=== PATIENT | female | born 1955 | race Caucasian/White ===

== ENCOUNTER 2021-09-20 14:56 | Outpatient (REF) | payer MEDICARE, MEDICAID, SELFPAY ==
--- NOTE | ~2021-09-20 | US_ITS ---
EXAMINATION: US VENOUS ULTRASOUND WITH DOPPLER LOWER EXTREMITY, RIGHT CLINICAL INFORMATION: Swelling and pain. Posterior calf bruise. COMPARISON: None TECHNIQUE: Ultrasound of the deep veins is performed from the hip to the calf with compression sonography and color and pulse Doppler assessment. Spectral analysis with color-flow imaging is performed. FINDINGS: There is normal venous compression and respiratory variation and augmented flow. The visualized common femoral vein, superficial femoral vein, profunda femoral vein, popliteal vein, and posterior tibial veins show no evidence of deep venous thrombosis. The peroneal veins are not well visualized. There is no significant popliteal fossa cyst. US/US venous duplex LE RT IMPRESSION: No DVT demonstrated in the right lower extremity. Peroneal veins in the calf is not well visualized.
== END 2021-09-20 14:57 | disposition home or self-care (01) ==
LOC: HO.US 14:56
PROVIDERS: PCP Internal Medicine; Visit Provider Orthopaedic Surgery
DX: R60.0 Localized edema (principal); M79.604 Pain in right leg
CPT/HCPCS: 93971

== ENCOUNTER 2021-10-26 08:12 | Outpatient (REF) | payer MEDICARE, MEDICAID, SELFPAY ==
--- NOTE | ~2021-10-26 | MM_ITS ---
EXAMINATION: MM SCREENING DIGITAL BREAST TOMOSYNTHESIS, BILATERAL CLINICAL INFORMATION: Screening. Asymptomatic. The lifetime risk of breast cancer based on the Tyrer-Cuzick Model is 15%. COMPARISON: Mammography: 02/24/2017; outside mammography 01/01/2015 ([facility]) TECHNIQUE: Digital breast tomosynthesis is performed in both the craniocaudal and mediolateral oblique views along with computer-aided detection (CAD). Synthesized 2D images are generated from the tomosynthesis. FINDINGS: There are scattered areas of fibroglandular density (ACR BI-RADS breast composition Category b). There are no significant masses, abnormal calcifications, or other abnormalities. Parenchymal pattern is similar to prior studies. No developing density or architectural abnormality. No significant changes. MM/MM tomosynthesis screening BI IMPRESSION: No mammographic evidence of malignancy. ASSESSMENT: BI-RADS 1: Negative RECOMMENDATION: Routine annual mammography screening. This patient's information was entered into a reminder system with a target due date for their next mammogram.
== END 2021-10-26 08:13 | disposition home or self-care (01) ==
LOC: HO.MAMMO 08:12
PROVIDERS: PCP Internal Medicine; Visit Provider Internal Medicine
DX: Z12.31 Encounter for screening mammogram for malignant neoplasm of breast (principal)
CPT/HCPCS: 77063; 77067

== ENCOUNTER 2022-02-03 12:40 | Outpatient (REF) | payer MEDICARE, MEDICAID, SELFPAY ==
[2022-02-03 13:41] LABS: MANUAL DIFF FLAG NO
[2022-02-03 13:44] LABS: Basophils Percent Auto 0.7 % (0-2); Eosinophils Absolute Auto 0.2 X10*3/uL (0.0-0.4); Eosinophils Percent Auto 2.8 % (0-4); Hematocrit 42.2 % (37.0-47.0); Imm Gran Abs Auto 0.03 X10*3/uL (0.00-0.03); Imm Gran Pct Auto 0.5 % (0.0-0.4); Lymphocytes Absolute Auto 1.7 X10*3/uL (1.2-4.9); Lymphocytes Percent Auto 29.5 % (20-40); Mean Corpuscular HGB Conc 33.2 g/dl (31.0-35.0); Mean Corpuscular Hemoglobin 32.2 pg (27.0-33.0); Mean Platelet Volume 9.8 fL (9.4-12.3); Monocytes Absolute Auto 0.5 X10*3/uL (0.1-1.2); Monocytes Percent Auto 8.5 % (2-11); Neutrophils Absolute Auto 3.3 x10*3/uL (2.0-8.3); Platelet Count 252 X10*3/uL (160-400); Red Blood Count 4.35 X10*6/uL (4.20-5.50); Red Cell Distribution Width 12.4 % (11.0-16.0); White Blood Count 5.8 X10*3/uL (4.8-10.8)
[2022-02-03 13:50] LABS: D Dimer High Sensitivity < 150 NG/ML
[2022-02-03 13:57] LABS: Alanine Aminotransferase 20 U/L (0-31); Albumin Level 4.2 g/dL (3.5-5.0); Alkaline Phosphatase 146 U/L (39-117); Anion Gap 17 (12-20); Aspartate Amino Transferase 18 U/L (5-31); Bilirubin Total 0.3 mg/dL (0.0-1.0); Blood Urea Nitrogen 7 mg/dL (9-16); Calcium 9.1 mg/dL (8.4-10.2); Carbon Dioxide 29 mmol/L (22-29); Chloride 101 mmol/L (96-108); Cholesterol 247 mg/dL; Estimated Glomerular Filt Rate > 60; Glucose Random 110 mg/dL (60-115); Potassium 3.8 mmol/L (3.3-5.1); Sodium 143 mmol/L (135-145); Total Protein 7.1 g/dL (6.5-8.0)
[2022-02-03 14:00] LABS: B Type Natriuretic Peptide < 10 pg/mL (<100)
[2022-02-03 14:21] LABS: Free T4 (Free Thyroxine) 1.05 ng/dL (0.71-1.85); Thyroid Stimulating Hormone 1.02 uIU/mL (0.32-4.0)
== END 2022-02-03 12:41 | disposition home or self-care (01) ==
LOC: HO.10HDL 12:40
PROVIDERS: Visit Provider Internal Medicine
DX: J44.9 Chronic obstructive pulmonary disease, unspecified (principal); D64.9 Anemia, unspecified; R51.9 Headache, unspecified; F31.9 Bipolar disorder, unspecified
CPT/HCPCS: 36415; 80053; 82465; 83880; 84439; 84443; 85025; 85379

== ENCOUNTER → 2022-03-10 14:49 | Outpatient (REF) | payer MEDICARE, MEDICAID, SELFPAY ==
--- NOTE | 2022-03-10 15:00 | CA_ITS ---
Transthoracic Echocardiogram Patient (Last, First, Middle): Yany Banks, Gender: Female Date of : 1955 Age: 66 Procedure Date: 03/10/2022 Procedure Type: Transthoracic Echocardiogram Location: OP Height: 162.56 cm Weight: 120.2 kg BSA: 2.20 m2 Heart Rate: 91 bpm Pants Busheler: SB Referring MD: Bakari Wallis MD Tax Agent: Bony Haynes MD Symptoms: R06.09 DYSPNEA R60.9 EDEMA J44.9 COPD Study Quality: Fair w contrast ECG Rhythm: Sinus Conclusions: - 1. Technically limited study despite use of contrast agent 2. Normal LV systolic function with mild LVH with impaired relaxation filling pattern 3. Limited visualization of cardiac valves with normal cardiac valvular Doppler 4. Mildly dilated ascending aorta at 4.1 cm Findings Procedure Information Contrast agent, definity, is being given per protocol without apparent complications. Left Ventricle Normal left ventricular size and systolic function. There is mildly increased left ventricular wall thickness. The visually estimated ejection fraction is between 65-70%. Spectral Doppler is indicative of an impaired relaxation filling pattern. Right Ventricle The right ventricle was not well visualized. Atria The left atrium was not well visualized. Interatrial shunt cannot be excluded. The right atrium was not well visualized. Aortic Valve The aortic valve was not well visualized. There is no aortic valve stenosis. Mitral Valve The mitral valve was not well visualized. There is no mitral valve stenosis. Pulmonic Valve The pulmonic valve was not well visualized. Tricuspid Valve The tricuspid valve was not well visualized. Tricuspid regurgitation envelope is inadequate for calculation of right ventricular systolic pressure. Great Vessels The pulmonary artery was not well visualized. There is mild dilatation of the ascending aorta measuring 4.10 cm. Small plaque is seen in the sino tubular ridge and ascending aorta. Venous The inferior vena cava was not well visualized. Pericardium/Pleural The pericardium was not well visualized. Prior Study Comparison no previous study in the last 5 years for comparison Measurements 2D Linear Measurements IVSd: 1.29 0.6-0.9/0.6-1.0 cm LVIDd: 5.09 3.9-5.3/4.2-5.9 cm LVIDd Index: 2.31 2.4-3.2/2.2-3.1 cm/m2 LVIDs: 3.23 2.0-3.6 cm LVPWd: 1.08 0.7-1.1 cm LV Mass: 294.62 67-162/88-224 g LV Mass Index: 133.92 43-95/49-115 g/m2 LVOT Diam: 2.10 3.0+(-)1.3 cm 2D Systolic Function EF 4C: 76.40 >55% EF 2C: 71.70 >55% Mitral Valve MV Pk E: 0.57 MV PK A: 0.85 MV Decel Time: 192.00 E/A: 0.70 E'Medial: 5.00 E/E' Med: 11.40 PHT: 57.00 MVA PHT: 3.86 Decel [place]: 2.98 Aortic Valve AoV Pk Eugene: 1.51 AoV Mn Eugene: 1.01 AoV VTI: 0.22 AoV Pk Grad: 9.00 Aov Mn Grad: 5.00 BAKARI Cont.VTI: 2.12 LVOT LVOT Pk Eugene: 0.76 LVOT Mn Eugene: 0.51 LVOT VTI: 0.14 LVOT Pk Grad: 2.00 LVOT Mn Grad: 1.00 LVOT Diam: 2.10 LVOT Area: 3.46 Diastolic Function MV Pk E: 0.57 MV Pk A: 0.85 E/A: 0.70 E'Medial: 5.00 E/E' Med: 11.40 Right Ventricle TAPSE (mm): 21.40 TVS' Eugene: 14.00 Tricuspid Valve RA Press: 3.00 Great Vessels Aorta Sinus of Valsalva: 3.40 2.0-3.5 cm Ao Asc: 4.10 2.1-3.4 cm Pulmonary Valve PV Pk Eugene: 0.71 Peak PV Grad: 2.00 Updated in Other Vendor System with Status of Final Bony Haynes MD electronically signed on 03/10/2022 5:05:26 PM with status of Final
[2022-03-10 15:55] LABS: Cholesterol 224 mg/dL; HDL Cholesterol 45 mg/dL; Triglycerides 496 mg/dL
== END ==
LOC: HO.CARD 14:49
PROVIDERS: PCP Internal Medicine; Visit Provider Internal Medicine
DX: R06.09 Other forms of dyspnea (principal); R60.9 Edema, unspecified; J44.9 Chronic obstructive pulmonary disease, unspecified; E78.00 Pure hypercholesterolemia, unspecified
CPT/HCPCS: 36415; 80061; 93306; Q9957

== ENCOUNTER 2024-02-13 10:33 | Outpatient (REF) | payer MEDICARE, SELFPAY ==
--- NOTE | ~2024-02-13 | XR_ITS ---
EXAMINATION: XR ANKLE, RIGHT CLINICAL INFORMATION: Right ankle pain. Surgery. COMPARISON: Right ankle radiographs dated 03/03/2012. TECHNIQUE: AP, lateral, and mortise views of the right ankle. FINDINGS: Lateral distal fibular stabilization plate with multiple fixation screws. The distal screws traverse the distal tibiofibular syndesmosis. No hardware fracture. No perihardware lucency to suggest loosening or infection. No acute osseous fracture. The ankle mortise is maintained. No talar osteochondral lesion. Mild tibiotalar joint space narrowing with small marginal osteophytes. Corticated ossification redemonstrated adjacent to the lateral malleolus consistent with a remote, unfused fracture fragment and unchanged since 2011. Plantar and dorsal calcaneal spurs. Circumferential soft tissue swelling. No radiopaque foreign body. XR/XR ankle RT min 3V IMPRESSION: 1. Lateral distal fibular ORIF without evidence of complication. 2. Mild tibiotalar osteoarthritis. 3. Circumferential soft tissue swelling. Electronically signed by: Brennan Redman MD 02/13/2024 12:42 PM EDT
[2024-02-13 11:14] LABS: MANUAL DIFF FLAG NO
[2024-02-13 11:39] LABS: Basophils Absolute Auto 0.1 X10*3/uL (0.0-0.2); Basophils Percent Auto 0.8 % (0-2); Eosinophils Absolute Auto 0.1 X10*3/uL (0.0-0.4); Eosinophils Percent Auto 1.7 % (0-4); Hematocrit 44.7 % (37.0-47.0); Hemoglobin 14.9 g/dl (12.0-16.0); Imm Gran Abs Auto 0.01 X10*3/uL (0.00-0.03); Imm Gran Pct Auto 0.2 % (0.0-0.4); Lymphocytes Absolute Auto 1.8 X10*3/uL (1.2-4.9); Lymphocytes Percent Auto 29.1 % (20-40); Mean Corpuscular HGB Conc 33.3 g/dl (31.0-35.0); Mean Corpuscular Hemoglobin 32.3 pg (27.0-33.0); Mean Platelet Volume 9.4 fL (9.4-12.3); Monocytes Absolute Auto 0.4 X10*3/uL (0.1-1.2); Monocytes Percent Auto 6.8 % (2-11); Neutrophils Absolute Auto 3.7 x10*3/uL (2.0-8.3); Neutrophils Percent Auto 61.4 % (45-73); Platelet Count 246 X10*3/uL (160-400); Red Blood Count 4.61 X10*6/uL (4.20-5.50); Red Cell Distribution Width 12.1 % (11.0-16.0); White Blood Count 6.1 X10*3/uL (4.8-10.8)
[2024-02-13 12:25] LABS: Alanine Aminotransferase 27 U/L (0-31); Albumin Level 4.2 g/dL (3.5-5.0); Alkaline Phosphatase 119 U/L (39-117); Anion Gap 15 (12-20); Aspartate Amino Transferase 23 U/L (5-31); Bilirubin Total 0.4 mg/dL (0.0-1.0); Blood Urea Nitrogen 8 mg/dL (9-16); Calcium 9.5 mg/dL (8.4-10.2); Carbon Dioxide 27 mmol/L (22-29); Chloride 104 mmol/L (96-108); Cholesterol 220 mg/dL (<200); Estimated Glomerular Filt Rate > 60; Glucose Fasting 95 mg/dL (60-99); HDL Cholesterol 44 mg/dL (>40); LDL Cholesterol Calculated 140 mg/dL (<100); Sodium 142 mmol/L (135-145); Total Protein 7.4 g/dL (6.5-8.0); Triglycerides 180 mg/dL (<150)
[2024-02-13 12:29] LABS: Thyroid Stimulating Hormone 0.86 uIU/mL (0.32-4.0)
== END 2024-02-13 10:34 | disposition home or self-care (01) ==
LOC: HO.XRAY 10:33
PROVIDERS: PCP Internal Medicine; Visit Provider Internal Medicine
DX: E78.00 Pure hypercholesterolemia, unspecified (principal); G43.909 Migraine, unspecified, not intractable, without status migrainosus; M25.571 Pain in right ankle and joints of right foot; F31.9 Bipolar disorder, unspecified; Z86.718 Personal history of other venous thrombosis and embolism
CPT/HCPCS: 36415; 73610; 80053; 80061; 84443; 85025

== ENCOUNTER 2024-02-20 12:48 | Outpatient (REF) | payer MEDICARE, SELFPAY ==
--- NOTE | ~2024-02-20 | US_ITS ---
EXAMINATION: MM DIAGNOSTIC DIGITAL BREAST TOMOSYNTHESIS, BILATERAL US BREAST LIMITED, RIGHT MAMMOGRAPHY: CLINICAL INFORMATION: 68-year-old female complaining of diffuse right breast pain and heaviness. Remote history of right-sided benign biopsy/aspiration many years ago. Patient also due for yearly. COMPARISON: Mammography: 10/26/2021, 02/24/2017, 01/01/2015, 12/25/2013. TECHNIQUE: Digital breast tomosynthesis is performed in both the craniocaudal and mediolateral oblique views along with computer-aided detection (CAD). Synthesized 2D images are generated from the tomosynthesis. FINDINGS: There are scattered areas of fibroglandular density (ACR BI-RADS breast composition Category b). There are no suspicious masses, suspicious grouped calcifications, or areas of architectural distortion in either breast. The parenchymal pattern is stable from prior exams. There is no skin or axillary abnormality. No mammographic abnormality to explain diffuse right pain and heaviness. ULTRASOUND: CLINICAL INFORMATION: As above COMPARISON: None relevant. TECHNIQUE: Targeted sonographic evaluation of the right breast 4 quadrants was performed using a high frequency linear transducer. Selected archived documentation. FINDINGS: RIGHT BREAST: There is a mixture of fatty and fibroglandular tissue. No suspicious mass is seen. There is no pathologic acoustic shadowing. No cystic abnormalities. There are no correlates to explain breast pain. US/US breast RT limited mamm only IMPRESSION: There are no findings suspicious for malignancy in either breast. There are no mammographic or sonographic correlates in the right breast to explain diffuse breast pain. Recommend clinical management of follow-up. Otherwise, recommend patient resume routine annual screening. OVERALL ASSESSMENT: Mammography: BI-RADS 1 - Negative Ultrasound: BI-RADS 1 - Negative RECOMMENDATION: 1 year F/U This patient's information was entered into a reminder system with a target due date for their next mammogram. Electronically signed by: Bon Miles MD 02/20/2024 02:39 PM EDT
== END 2024-02-20 12:49 | disposition home or self-care (01) ==
LOC: HO.MAMMO 12:48
PROVIDERS: PCP Internal Medicine; Visit Provider Internal Medicine
DX: N64.4 Mastodynia (principal)
CPT/HCPCS: 76642; 77062; 77066

== ENCOUNTER → 2024-02-20 13:00 | Outpatient (BNV) | payer MEDICARE, SELFPAY | PROVIDERS: PCP Internal Medicine; Visit Provider Radiology Diagnostic Radiology | DX: N64.4 Mastodynia (principal) | CPT/HCPCS: 76642; 77066; G0279 ==

== ENCOUNTER 2024-11-04 15:21 | Outpatient (AMB) | payer MEDICARE, MEDICAID, SELFPAY ==
--- NOTE | 2024-11-04 14:23 | MHC.PC.OV ---
Vital Signs 11/04/24 15:36 Height 5 ft 4 in Weight 277 lb BMI 47.5 BP 130/80 Blood Pressure Location Lt brachial Position Sitting Pulse 98 Pulse Source Pulse Oximeter Temp 97.1 F Temp Source Axillary Pulse Oximetry (%) 96 Oxygen Delivery Method Room Air Intake Visit Reasons: Routine - see comments Individualized Education Plan Aide Required: No Accompanied by: Self / Same As Patient Allergies No Known Allergies Allergy (Verified 11/04/24 14:23) Tobacco use date assessed: 11/04/24 Fall risk assessment: 2 + Falls in past year Last assessed Fall Risk: 11/04/24 Dental Screening Dental Screen Date: 11/04/24 Did you have a dental visit in the last 12 months?: No Did you have a dental problem in the last 6 months where you did not have access to dental care?: No [facility] Medical History (Updated 11/08/24 @ 14:23 by Quinton Gannon MD) Generalized anxiety disorder Surgical History History of colonoscopy (~07/02/08) Family History (Updated 11/04/24 @ 16:00 by Meghna Nolen MA) Mother No problems noted. Father Miller Obrien attack Heart attack Daughter Mental health disorder Social History Housing: House Patient Tobacco Use Status: Current everyday Tobacco user e-Cigarette/Vaping Use: Currently Using service: No Current occupational status: retired Cognitive needs: Yes (cane) Hearing needs: No Vision needs: Yes (rx glasses) Questionnaire PHQ-9 Over the last 2 weeks, how often have you been bothered by any of the following problems? 1. Little interest or pleasure in doing things: not at all 2. Feeling down, depressed, or hopeless: not at all 3. Trouble falling or staying asleep, or sleeping too much: not at all 4. Feeling tired or having little energy: not at all 5. Poor appetite or overeating: not at all 6. Feeling bad about yourself - or that you are a failure or have let yourself or your family down: not at all 7. Trouble concentrating on things, such as reading the newspaper or watching television: not at all 8. Moving or speaking so slowly that other people could have noticed. Or the opposite - being so fidgety or restless that you have been moving around a lot more than usual: not at all 9. Thoughts that you would be better off or of hurting yourself in some way: not at all Total score: 0 Source: Developed by Drs. Wm Fitch, Kimber Peraza, Itz Walters and colleagues, with an educational leonel from [employer]. Thrive Questionnaire Date Thrive assessed: 11/04/24 I am a: Patient Within the past 12 months, did the food you bought not last and you didn't have the money to get more?: Never true Within the past 12 months, did you worry whether your food would run out before you got money to buy more?: Never true Do you have trouble paying for medicines?: No Do you have trouble getting transportation to medical appointments?: No Do you have trouble paying your heating and electricity bill?: No Do you have trouble taking care of your child, family member or friend?: No Do you have trouble with day-to-day activities such as bathing, preparing meals, shopping, managing finances, etc.?: No Are you currently unemployed and looking for a job?: No Are you interested in more education?: No THRIVE Score: 0 AUDIT C Alcohol Use Questionnaire (AUDIT-C) 1. How often do you have a drink containing alcohol?: Monthly or less 2. How many drinks containing alcohol do you have on a typical day when you are drinking?: 1 or 2 3. How often do you have six or more drinks on one occasion?: Less than monthly Total Score: 2 BRI-7 AMB Questionnaire BRI-7 Date BRI - 7 assessed: 11/04/24 Feeling nervous, anxious, or on edge: 0 = Not at all Not being able to stop or control worryin = Not at all Worrying too much about different things: 0 = Not at all Trouble relaxin = Not at all Being so restless that it is hard to sit still: 0 = Not at all Becoming easily annoyed or irritable: 0 = Not at all Feeling afraid as if something awful might happen: 0 = Not at all Total BRI-7 score (0-4 normal; 5-9 mild; 10-14 moderate; 15-21 severe): 0 Source: Developed by Drs. Wm Fitch, Kimber Peraza, Itz Walters and colleagues, with an educational leonel from [employer]. Physical exam (Primary Care) Vital Signs: Last Vital Signs Temp 97.1 F 11/04/24 15:36 Pulse 98 11/04/24 15:36 BP 130/80 11/04/24 15:36 Pulse Ox 96 11/04/24 15:36 Oxygen Delivery Method Room Air 11/04/24 15:36 BMI result Body Mass Index 47.5 Tobacco/Smoking Status: Tobacco use Status Tobacco use date assessed 11/04/24 11/04/24 14:25 Patient Tobacco Use Status Current everyday Tobacco 11/04/24 16:00 e-Cigarette/Vaping Use Currently Using 11/04/24 16:00 PHQ-9: PHQ-9 Score PHQ-9: Total score 0 11/04/24 16:00 Thrive Assessment: Date of Thrive Assessment Date Thrive assessed 11/04/24 11/04/24 14:25 Coding Level of Care Code New Pt Level 4 (19480) Complex EM visit Add On G2211 Diagnoses Generalized anxiety disorder F41.1 Assessment & Plan Assessment & Plan (1) Generalized anxiety disorder: Code(s): F41.1 - Generalized anxiety disorder Category: Medical Plan: See below Plan History of Present Illness The patient is a 69-year-old female presenting with concerns regarding medication management and evaluation for symptoms indicative of diabetes. She has been managing bipolar disorder with paroxetine and quetiapine fumarate, which have proven effective. Additionally, she takes clonazepam due to a history of seizures after a significant accident, stating a need to remain on this medication to prevent seizures. The patient acknowledges a past diagnosis of DVT, for which she was placed on Eliquis following a femur fracture three years prior. Current concerns include experiencing numbness and tingling in her hands and feet, blurred vision, and noticing blood in her urine and bowel movements. With a family history of type 2 diabetes, she expresses worry that her sympxepers might indicate a transition from her historical hypoglycemia to diabetes, as occurred with her relatives. Social History - The patient smoked cigarettes but the quantity was not specified. - She reported having her son drive her to appointments due to unspecified reasons. - Expressed difficulty in finding mental health providers during the COVID-19 pandemic. - Resides in an undisclosed area but has emphasized needing close access to medical care. - Displays assertive decision-making regarding her personal healthcare preferences. Review of Systems - Neurological: Reports numbness and tingling in extremities. - Ophthalmological: Reports blurred vision. - Genitourinary/Gastrointestinal: Reports presence of blood in urine and bowel movements. - Hematological: History of DVT, no recent clots reported. - Psychiatric/Mental Health: Reports effective management of bipolar disorder with current medications. - Endocrinological: Reports low blood sugar episodes, no diabetes diagnosis. Physical Exam General: Cooperative and healthy appearing Nutritional Appearance: Well nourished Orientation/consciousness: Patient oriented x3 Limitations: No limitations Head: Normal to inspection General: Appearance normal, both eyes and all related structures Neck: Normal visual inspection Chest: Normal palpation of entire chest wall Respiratory: Patient reports smoking. ormal respiratory effort Neurology: Patient oriented x3, reports seizures and numbness/tingling in extremities. Results - Labs: Blood work for glucose levels to assess potential transition to diabetes is planned, requiring a fasting state. Plan 1. Bipolar Disorder - Continue with paroxetine and quetiapine. 2. Seizure Disorder - Maintain on clonazepam; plan to see neurologist. 3. Hypoglycemia - Reinforce dietary management; assess glucose levels. 4. Blurred Vision - Check fasting blood glucose levels. 5. Numbness And Tingling In Extremities - Investigate potential connection with diabetes. 6. Blood In Urine And Bowel Movements - Require lab work for further assessment. 7. History Of Femur Fracture - Review medication necessity. 8. Deep Vein Thrombosis - Consult with banking and finance instructor on Eliquis use. Discussion Notes I discussed with the patient the management options for her ongoing conditions, including the continuation of paroxetine and quetiapine fumarate for her bipolar disorder, as they have proven effective. For her seizure disorder, clonazepam is to be continued until a neurologist can evaluate her current treatment regimen. The patient expressed a strong preference not to change this medication due to past withdrawal seizures. I have advised fasting blood work to investigate her concerns regarding potential type 2 diabetes, particularly due to reported symptoms of numbness, tingling, and blurred vision, and familial history. We also discussed the need for a hematology consultation to assess whether she should continue taking Eliquis, initially prescribed post-femur fracture-related DVT. I reassured the patient that we would explore her options for mental health support and detailed the plan for her lab work to prevent any fasting-induced low blood sugar episodes. Patient Instructions - Continue taking paroxetine and quetiapine as prescribed for bipolar disorder. - Maintain clonazepam doses, and keep track of any seizure-related symptoms. - Schedule and attend blood work for glucose assessment as directed, needing a fast beforehand. - Watch for any changes in your vision or sensation in your extremities. - Seek help if blood in urine or bowel movements increases. - Plan to see a banking and finance instructor regarding continued use of Eliquis. - Set appointments with any referred mental health providers to assist with medication management.
--- OUTSIDE RECORDS SUMMARY | 2024-11-04 15:24 | XMS_ITS | Patient Health Record ---
Author Organization [facility] Address [address] [place] [address] Care Team Providers Care Mattress Renovator Name Role Phone Bakari Wallis MD Primary Care Provider Wm Reyes [phone] Reason For Referral No Information Plan Of Treatment Next Appt Details Provider Name:Wm Jorge Deisy , 11/19/2024 11:10:00 AM, [address], [address], [place], [address], Insurance Providers Payer Name Payer Address Payer Phone Subscriber Number Group Number Insured Name Patient Relationship to Insured Coverage Start Date Coverage End Date [place] OF [place] [address] [place] [id number] YONNY COLEMAN Self - patient is the insured MEDICAID OF [facility] [address] [place] [address] [id number] YONNY COLEMAN Self - patient is the insured Medical (General) History Medical History History ICD Code Colonoscopy 07/02/2008 Alcohol abuse depression Anxiety Surgical History Surgery Date(Month/Year) shoulder surgery
--- OUTSIDE RECORDS SUMMARY | 2024-11-04 15:24 | XMS_ITS | Clinical Summary ---
Author Organization [facility] ity Address [address] [place] [address] Care Team Providers Care Fagot Heater Helper Name Role Phone Unavailable Primary Care Provider Unavailabl e Social History Tobacco Use Types Packs/Day Years Used Date Smoking Tobacco: Never Assessed Comments Unknown Sex and Gender Information Value Date Recorded Sex Assigned at Not on file Legal Sex Female 12:05 AM EST Gender Identity Not on file Sexual Orientation Not on file Plan of Treatment Health Maintenance Due Date Last Done Comments Breast Cancer Screening 1955 DTaP,Tdap,and Td Vaccines (1 - Tdap) 1976 Pneumococcal Vaccine: 50+ Ye ars (1 of 1 - PCV) 2007 Zoster Vaccines (1 of 2) 2007 COVID-19 Vaccine ( - 2023-2 5 season) 2024 Influenza Vaccine (Season Ended) 2025 RSV Immunization Adult Patie nts (1 - 1-dose 75+ series) 2032 HIB Vaccines Aged Out No longer eligi ble based on patient's age to complete this topic HPV Vaccines Aged Out No longer eligi ble based on patient's age to complete this topic Hepatitis A Vaccines Aged Out No long er eligible based on patient's age to complete this topic Hepatitis B Vaccines Aged Out No long er eligible based on patient's age to complete this topic IPV Vaccines Aged Out No longer eligi ble based on patient's age to complete this topic MMR Vaccines Aged Out No longer eligi ble based on patient's age to complete this topic Meningococcal ACWY Vaccine Aged Out N o longer eligible based on patient's age to complete this topic Meningococcal B Vaccine Aged Out No l onger eligible based on patient's age to complete this topic RSV Immunization Patients Un erickson 20 months Aged Out No longer eligible b ased on patient's age to complete this topic Varicella Vaccines Aged Out No longer eligible based on patient's age to complete this topic
[2024-11-04 15:36] VITALS: BP 130/80; PULSE 98; TEMP 36.2; O2SAT 96; BMI 47.5
== END 2024-11-04 16:30 | disposition home or self-care (01) ==
LOC: HO.HMCHD 15:21
PROVIDERS: PCP Internal Medicine; Visit Provider Internal Medicine
DX: F41.1 Generalized anxiety disorder (principal)

== ENCOUNTER → 2024-11-04 15:21 | Outpatient (BNVA) | payer MEDICARE, SELFPAY | PROVIDERS: PCP Internal Medicine; Visit Provider Internal Medicine | DX: F41.1 Generalized anxiety disorder (principal) | CPT/HCPCS: 99202 ==

== ENCOUNTER 2024-12-31 13:02 | Outpatient (AMB) | payer MEDICARE, MEDICAID, SELFPAY ==
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
[2024-12-31 13:08] VITALS: BP 130/90; PULSE 100; RESP 18; TEMP 36.2; O2SAT 97
--- OUTSIDE RECORDS SUMMARY | 2024-12-31 13:44 | XMS_ITS | Patient Health Record ---
Author Organization [facility] Address [address] [place] [phone] Care Team Providers Care Inside Parts Sales Name Role Phone NIKITA, KARTIK Primary Care Provider Wm Prince Unavailable [phone] Allergies No Known Allergies Reason For Referral No Information Medications Medication SIG (Take, Route, Frequency, Duration) Notes Start Date End Date Status MiraLax (colon prep) 17 GM/SCOOP 1 238Gm bottle mixed with Gatorade or Crystal Light orally begin at 5:00 p.m. the day before the procedure for 1 days 11/20/2024 Active Dulcolax (colon prep) 5 MG take at 3:00 p.m and 7:00p.m. Orally two tablets twice a day for one day for 1 days 11/20/2024 Active Butalbital-APAP Acti ve clonazePAM Active Eliquis Active Paxil Active QUEtiapine Fumarate Active Social History Tobacco Use: Social History Observation Description Date Details (start date - stop date) Current Smoker NA - NA Tobacco Control (Standard) Question Answer Notes Tobacco use: Current smoker How often do you smoke cigarettes? Every day How many cigarettes a day do you smoke? 21-30 How soon after you wake up do you smoke your fir st cigarette? 6-30 minutes AUDIT-C (Standard) Question Answer Notes Did you have a drink containing alcohol in the p ast year? No Points 0 Interpretation Negative Section Notes: Smokes 1 PPD, Alcohol abuse but not daily anymore Problems Problem Type SNOMED Code ICD Code Onset Dates Problem Status W/U Status Risk Notes Problem Rectal bleeding (K62.5) Active confirmed Problem Change in bowel habit (13180853) Change in bowel habits (R19.4) Active confirmed Vital Signs Blood pressure diastolic 77 mm Hg 11/19/2024 Height 64 in 11/19/2024 Blood pressure systolic 111 mm Hg 11/19/2024 Weight 272 lbs 11/19/2024 BMI 46.68 kg/m2 11/19/2024 Procedures Procedure Date Ordered Date Performed Result Body Sit e COLONOSCOPY 11/19/2024 N/A Encounters Encounter Location Date Provider Diagnosis [facility] [address] [place] [phone] 11/19/2024 Wm Olivas Change in bowel habits R19.4 and Rectal bleeding K62.5 [facility] [address] [place] [phone] 11/19/2024 Wm Olivas Assessments Encounter Date Diagnosis (ICD Code) Assessment Notes Treatment Notes Treatment Clinical Notes Section Notes 11/19/2024 Rectal bleeding (ICD-10 - K62.5) Given Yany's clinical history of some slight change in bowel habits, some hematochezia which sounds to be most consistent with hemorrhoids, and her last colonoscopy being back in 2008, I did recommend a colonoscopy for complete evaluation to rule out polyps or any other lesions. We did review the rationale for that in regard to colorectal cancer prevention and/or early detection. Full consent has been obtained for this, including risks of bleeding and perforation. The procedure will be done with monitored anesthesia care. She was given the below instructions regarding the Eliquis and to review that with you as well. I would leave the use of Lovenox bridging up to your judgment. I did advise Yany to contact me prior to the colonoscopy if anything worsens in regard to her bowel habits or bleeding. She was comfortable with this plan. Thank you again for allowing me to participate in Yany's care. I shall continue to keep you advised of her progress. 11/19/2024 Change in bowel habits (ICD-10 - R19.4) Given Yany's clinical history of some slight change in bowel habits, some hematochezia which sounds to be most consistent with hemorrhoids, and her last colonoscopy being back in 2008, I did recommend a colonoscopy for complete evaluation to rule out polyps or any other lesions. We did review the rationale for that in regard to colorectal cancer prevention and/or early detection. Full consent has been obtained for this, including risks of bleeding and perforation. The procedure will be done with monitored anesthesia care. She was given the below instructions regarding the Eliquis and to review that with you as well. I would leave the use of Lovenox bridging up to your judgment. I did advise Yany to contact me prior to the colonoscopy if anything worsens in regard to her bowel habits or bleeding. She was comfortable with this plan. Thank you again for allowing me to participate in Yany's care. I shall continue to keep you advised of her progress. Plan Of Treatment Pending Test Test Name Order Date COLONOSCOPY 11/19/2024 Next Appt Details Provider Name:Wm Olivas , 02/21/2025 07:30:00 AM, [address] [place] [address], [id number], Insurance Providers Payer Name Payer Address Payer Phone Subscriber Number Group Number Insured Name Patient Relationship to Insured Coverage Start Date Coverage End Date MEDICARE OF [place] [address] [place] [address] [id number] YANY COLEMAN Self - patient is the insured 4 MEDICAID OF [facility] [address] [place] [address] [id number] YANY COLEMAN Self - patient is the insured Medical (General) History Medical History History ICD Code Colonoscopies in 2003 and 2008 were nega tive except for hemorrhoids Alcohol abuse---heavier in the past but still drinks occasionally Bipolar Migraines Seizures Denies [place],DM,CVA,Lung disease,renal dise ase Blood clot in left leg in 2021 after kne e surgery Reports Hypoglycemia Surgical History Surgery Date(Month/Year) Right tibia fibula Right femur Right shoulder
--- OUTSIDE RECORDS SUMMARY | 2024-12-31 13:44 | XMS_ITS | Clinical Summary ---
Author Organization [facility] ity Address [address] [place] [address] Care Team Providers Care Butcher Assistant Name Role Phone Unavailable Primary Care Provider [...] - 2023-2 5 season) 2024 Influenza Vaccine (#1) 2025 RSV Immunization Adult Patie nts (1 [...]
== END 2024-12-31 13:48 | disposition home or self-care (01) ==
LOC: HO.HMCHD 13:05
PROVIDERS: PCP Internal Medicine; Visit Provider Physician Assistant
DX: F31.9 Bipolar disorder, unspecified (principal); I82.409 Acute embolism and thrombosis of unspecified deep veins of unspecified lower extremity; G40.909 Epilepsy, unspecified, not intractable, without status epilepticus; E66.01 Morbid (severe) obesity due to excess calories; G43.909 Migraine, unspecified, not intractable, without status migrainosus; F41.1 Generalized anxiety disorder; E78.5 Hyperlipidemia, unspecified

== ENCOUNTER → 2024-12-31 13:02 | Outpatient (BNVA) | payer MEDICARE, MEDICAID, SELFPAY | PROVIDERS: PCP Internal Medicine; Visit Provider Physician Assistant | DX: G43.909 Migraine, unspecified, not intractable, without status migrainosus (principal); F31.9 Bipolar disorder, unspecified; F41.1 Generalized anxiety disorder; E78.5 Hyperlipidemia, unspecified; E66.01 Morbid (severe) obesity due to excess calories; G40.909 Epilepsy, unspecified, not intractable, without status epilepticus; F17.210 Nicotine dependence, cigarettes, uncomplicated; Z86.718 Personal history of other venous thrombosis and embolism; Z79.01 Long term (current) use of anticoagulants; Z79.899 Other long term (current) drug therapy; Z13.31 Encounter for screening for depression; Z13.30 Encounter for screening examination for mental health and behavioral disorders, unspecified | CPT/HCPCS: 96127; 99202 ==

== ENCOUNTER 2025-01-15 08:46 | Outpatient (REF) | payer MEDICARE, MEDICAID, SELFPAY ==
[2025-01-15 09:02] LABS: MANUAL DIFF FLAG NO
--- OUTSIDE RECORDS SUMMARY | 2025-01-15 09:09 | XMS_ITS | Clinical Summary ---
Author Organization [facility] it Address [address] [place] [address] Care Team Providers Care Senior Site Manager Name Role Phone Unavailable Primary Care Provider [...] Vaccine ( - 2023-2 5 season) 2024 Depression Screening 06/26/2024 Influenza Vaccine (#1) 2025 RSV Immunization Adult [...]
--- OUTSIDE RECORDS SUMMARY | 2025-01-15 09:09 | XMS_ITS | Patient Health Record ---
Author Organization [facility] Address [address] [place] [address] Care Team Providers Care Manager Speech Name Role Phone JAN SHELTON Primary Care Provider Wm Prince Unavailable [phone] Allergies No Known Allergies Reason For Referral No Information Medications Medication SIG (Take, Route, Frequency, Duration) Notes Start Date End Date Status Butalbital-APAP Acti ve Bisacodyl EC 5 MG TAKE 2 TABLETS BY [facility] TWICE A DAY AT 3 PM AND [...] W/U Status Risk Notes Problem Rectal bleeding (59245117) Rectal bleeding (K62.5) Active confirmed Problem Change in bowel habit (96446608) Change in bowel habits (R19.4) Active confirmed Vital Signs Blood pressure diastolic 77 mm Hg 11/19/2024 Height 64 in 11/19/2024 Blood pressure systolic 111 mm Hg 11/19/2024 Weight 272 lbs 11/19/2024 BMI 46.68 kg/m2 11/19/2024 Procedures Procedure Date Ordered Date Performed Result Body Sit e COLONOSCOPY 11/19/2024 N/A Encounters Encounter Location Date Provider Diagnosis [facility] [address] [place] [phone] 11/19/2024 Wm Olivas Change in bowel habits R19.4 and Rectal bleeding K62.5 [facility] [address] [place] [phone] 11/19/[address] [facility] [address] [place] [phone] 01/03/[address] [facility] [address] [place] [phone] 01/03/2025 Wm Olivas Assessments Encounter Date Diagnosis [...] Provider Name:Wm Olivas , 02/21/2025 07:30:00 AM, [address] [place] [address] , [place], [place], [id number], Insurance Providers Payer Name Payer Address Payer Phone Subscriber Number Group Number Insured Name Patient Relationship to Insured Coverage Start Date Coverage End Date [place] OF [place] [address] JAR[place] PE[place] [address] [id number] JARED YANY Self - patient is the insured 4 MEDICAID OF [facility] [address] [place] [address] [id number] JARED YANY Self - patient is the insured Medical (General) History Medical History History ICD Code Colonoscopies in 2003 and 2008 were nega tive except for hemorrhoids Alcohol abuse---heavier in the past but still drinks occasionally Bipolar Migraines Seizures Denies ID,DM,CVA,Lung disease,renal dise ase Blood clot in left leg in 2021 after kne e surgery Reports Hypoglycemia Surgical History Surgery Date(Month/Year) Right tibia fibula Right femur Right shoulder
[2025-01-15 09:41] LABS: Hematocrit 43.3 % (37.0-47.0); Hemoglobin 14.4 g/dl (12.0-16.0); Imm Gran Abs Auto 0.02 X10*3/uL (0.00-0.03); Imm Gran Pct Auto 0.3 % (0.0-0.4); Lymphocytes Absolute Auto 2.0 X10*3/uL (1.2-4.9); Mean Corpuscular HGB Conc 33.3 g/dl (31.0-35.0); Mean Corpuscular Hemoglobin 31.9 pg (27.0-33.0); Mean Corpuscular Volume 95.8 fL (80.0-98.0); NRBC Abs Auto 0.000 X10*3/uL (0.0-0.012); NRBC Pct Auto 0.0 /100WBC (0.0-0.2); Platelet Count 283 X10*3/uL (160-400); Red Blood Count 4.52 X10*6/uL (4.20-5.50); White Blood Count 6.2 X10*3/uL (4.8-10.8)
[2025-01-15 10:11] LABS: Hemoglobin A1C 124.7087 umol/L; Total Hemoglobin (HGBA1C) 3785.0329 umol/L
[2025-01-15 10:28] LABS: Alanine Aminotransferase 31 U/L (0-31); Albumin Level 4.5 g/dL (3.5-5.0); Alkaline Phosphatase 121 U/L (39-117); Anion Gap 15 (12-20); Aspartate Amino Transferase 32 U/L (5-31); Blood Urea Nitrogen 9 mg/dL (9-16); Calcium 9.1 mg/dL (8.4-10.2); Carbon Dioxide 27 mmol/L (22-29); Chloride 104 mmol/L (96-108); Cholesterol 249 mg/dL (<200); Estimated Glomerular Filt Rate > 60; HDL Cholesterol 51 mg/dL (>40); Potassium 4.1 mmol/L (3.3-5.1); Sodium 142 mmol/L (135-145); Total Protein 7.8 g/dL (6.5-8.0); Triglycerides 144 mg/dL (<150)
== END 2025-01-15 08:47 | disposition home or self-care (01) ==
LOC: HO.LAB 08:46
PROVIDERS: Absent Provider Internal Medicine; PCP Physician Assistant; Visit Provider Physician Assistant
DX: F41.1 Generalized anxiety disorder (principal); I82.409 Acute embolism and thrombosis of unspecified deep veins of unspecified lower extremity; G43.909 Migraine, unspecified, not intractable, without status migrainosus; E78.5 Hyperlipidemia, unspecified; F31.9 Bipolar disorder, unspecified
CPT/HCPCS: 36415; 80048; 80061; 80076; 83036; 84443; 85025

== ENCOUNTER → 2025-02-21 06:17 | Day surgery (SDC) | payer MEDICARE, MEDICAID, SELFPAY ==
--- OUTSIDE RECORDS SUMMARY | 2025-01-07 10:48 | XMS_ITS | Clinical Summary ---
Author Organization [facility] ity Address [address] [place] [address] Care Team Providers Care Dermatologist And Dermatopathologist Name Role Phone Unavailable Primary Care Provider [...]
--- OUTSIDE RECORDS SUMMARY | 2025-01-07 10:48 | XMS_ITS | Patient Health Record ---
Author Organization [facility] Address [address] [place] [phone] Care Team Providers Care Helicopter Utility Aircrewman Name Role Phone JAN SHELTON Primary Care Provider Wm Prince Unavailable [phone] Allergies No Known Allergies Reason For Referral No Information Medications Medication SIG (Take, Route, Frequency, Duration) Notes Start Date End Date Status Butalbital-APAP Acti ve Bisacodyl EC 5 MG TAKE 2 TABLETS BY [facility] TWICE A DAY AT 3 PM AND 7 PM for 1 Active clonazePAM Active Eliquis Active MiraLax (colon prep) 17 GM/SCOOP 1 238Gm bottle mixed with Gatorade or Crystal Light orally begin at 5:00 p.m. the day before the procedure for 1 days Active Paxil Active QUEtiapine Fumarate Active MiraLax (colon prep) 17 GM/SCOOP 1 238Gm bottle mixed with Gatorade or Crystal Light orally begin at 5:00 p.m. the day before the procedure for 1 days 01/03/2025 Active Dulcolax (colon prep) 5 MG take at 3:00 p.m and 7:00p.m. the day before the colonoscopy Orally two tablets twice a day for one day for 1 days 01/03/2025 Active Social History Tobacco Use: Social History [...] W/U Status Risk Notes Problem Rectal bleeding (81240310) Rectal bleeding (K62.5) Active confirmed Problem Change in bowel habits (R19.4) Active confirmed Vital Signs Blood pressure diastolic 77 mm Hg 11/19/2024 Height 64 in 11/19/2024 Blood pressure systolic 111 mm Hg 11/19/2024 Weight 272 lbs 11/19/2024 BMI 46.68 kg/m2 11/19/2024 Procedures Procedure Date Ordered Date Performed Result Body Sit e COLONOSCOPY 11/19/2024 N/A Encounters Encounter Location Date Provider Diagnosis [facility] [address] [place] [phone] 11/19/2024 Wm Olivas Change in bowel habits R19.4 and Rectal bleeding K62.5 [facility] [address] [place] [phone] 11/19/2024 Wm Olivas [facility] [address] [place] [phone] 01/03/2025 Wm Olivas [facility] [address] [place] [phone] 01/03/2025 Wm Olivas Assessments Encounter Date Diagnosis (ICD [...] Provider Name:Wm Olivas , 02/21/2025 07:30:00 AM, [address] [place] [address] , [place], [place], [id number], Insurance Providers Payer Name Payer Address Payer Phone Subscriber Number Group Number Insured Name Patient Relationship to Insured Coverage Start Date Coverage End Date MEDICARE OF [place] [address] [place] [id number] [id number] JARED YANY Self - patient is the insured 4 MEDICAID OF [facility] [address] [place] [phone] [id number] JARED YANY Self - patient is the insured Medical (General) History Medical History History ICD Code Colonoscopies in 2003 and 2008 were nega tive except for hemorrhoids Alcohol abuse---heavier in the past but still drinks occasionally Bipolar Migraines Seizures Denies [place],DM,CVA,Lung disease,renal dise ase Blood clot in left leg in 2021 after kne e surgery Reports Hypoglycemia Surgical History Surgery Date(Month/Year) Right tibia fibula Right femur Right shoulder
[2025-02-19 14:05] VITALS: BMI 46.7
--- NOTE | 2025-02-20 09:07 | HO.ANESPROP2 ---
HPI - Anesthesia Eval Consult details Narrative: 69yo F for Colonoscopy Eliquis for DVT post knee surgery Hx ETOH abuse Seizure ds since childhood - controlled on clonazepam - no current Neurology but stable per 12/2024 PCP note and [facility] Active Problems Active Problems: All Active Problems Breast pain, right (Acute) Chronic pain of right lower extremity (Acute) Chronic right hip pain (Acute) Seizure disorder (Acute) Morbid obesity (Acute) HLD (hyperlipidemia) (Acute) DVT (deep venous thrombosis) (Acute) Bipolar disorder (Acute) Migraine (Acute) Generalized anxiety disorder (Acute) Past Medical History Medical History (Updated 02/19/25 @ 14:07 by Shamika Garibay RN) Alcohol dependence Seizure disorder Morbid obesity HLD (hyperlipidemia) DVT (deep venous thrombosis) Bipolar disorder Migraine Generalized anxiety disorder Family History Family History (Updated 11/04/24 @ 16:00 by Meghna Nolen MA) Mother No problems noted. Father Miller Obrein attack Heart attack Daughter Mental health disorder Surgical History Surgical History (Updated 02/19/25 @ 14:07 by Shamika Garibay RN) History of colonoscopy (~07/02/08) Social History Social History Housing: House Patient Tobacco Use Status: Current everyday Tobacco user e-Cigarette/Vaping Use: Currently Using service: No Current occupational status: retired Cognitive needs: Yes (cane) Hearing needs: No Vision needs: Yes (rx glasses) Meds Allergies Allergy/AdvReac Type Severity Reaction Status Date / Time No Known Allergies Allergy Verified 12/31/24 13:01 Home Medications ?Medication ?Instructions ?Recorded ?Confirmed ?Last Taken ?Type hydrocortisone 2.5 % topical topical 12/31/24 12/31/24 Unknown History ointment Exam Height,Weight and Vital Signs: Height 5 ft 4 in Weight 123.377 kg Pertinent Lab Results Pertinent Lab Results: Laboratory Tests 01/15/25 09:00 WBC 6.2 Hgb 14.4 Hct 43.3 Plt Count 283 Sodium 142 Potassium 4.1 Chloride 104 Carbon Dioxide 27 BUN 9 Creatinine 0.55
--- NOTE | 2025-02-21 06:38 | PC.NURSE ---
pt took her eliquis pt cancelled per dr botello
== END ==
LOC: HO.SSS 06:18
PROVIDERS: PCP Physician Assistant; Visit Provider Internal Medicine
DX: R19.4 Change in bowel habit (principal); Z53.09 Procedure and treatment not carried out because of other contraindication; I82.409 Acute embolism and thrombosis of unspecified deep veins of unspecified lower extremity; Z98.890 Other specified postprocedural states; Z79.01 Long term (current) use of anticoagulants

== ENCOUNTER 2025-03-06 13:27 | Outpatient (REF) | payer MEDICARE, MEDICAID, SELFPAY ==
--- OUTSIDE RECORDS SUMMARY | 2025-02-21 03:30 | XMS_ITS ---
Author Organization [facility] Address [address] [place] [address] Care Team Providers Care Sql Programmer Name Role Phone JAN SHELTON Primary Care Provider Wm Prince Unavailable [phone] REASON FOR VISIT change in bowel habits Encounters Encounter Location Date Provider Diagnosis [facility] Outpatient [address] [place] [id number] 02/21/2025 Wm Olivas Plan Of Treatment Next Appt Details Provider Name:Wm Patel Deisy , 06/04/2025 08:30:00 AM, [address] [place] [address], [id number], Progress Notes * TRACEY COLEMANEDOB:[birth year] (69 yo F)Acc No.[id number]:02/21/2025 COLON WITH MAC Patient: Jorge YONNY WEBB Provider: Analia Olivas MD :1955 A ge:69 Y S ex:Female Date:02/21/2025 Address:[address], [place] Pcp:JAN SHELTON Subjective: * Chief Complaints: * [...] 0 02/21/2025 Generated for Edwardo niño/Puneet/Payton on: 0 03/06/2025 05:24 PM EDT
--- NOTE | ~2025-03-06 | MM_ITS ---
EXAMINATION: MM DIAGNOSTIC DIGITAL BREAST TOMOSYNTHESIS, BILATERAL Right limited ultrasound. CLINICAL INFORMATION: Right breast pain for one year. COMPARISON: Mammography: Comparison is made with relevant prior exams. TECHNIQUE: Digital breast mammography with tomosynthesis is performed in both the craniocaudal and mediolateral oblique views along with computer-aided detection (CAD). FINDINGS: There are scattered areas of fibroglandular density (ACR BI-RADS breast composition Category b). Left: Asymmetry retroareolar region on CC view only seen on one view does not persist on additional cc view or MLO view likely represented overlapping breast tissue. No other suspicious masses calcifications or other abnormal findings. Targeted color Doppler ultrasound scanning in the retroareolar region demonstrates normal fibroglandular breast tissue. Right: [place] marker at site of patient's pain in the axilla and upper outer breast anterior depth without underlying abnormal finding. No suspicious masses calcifications or other abnormal findings. Targeted color Doppler ultrasound scanning in the axilla and upper outer breast demonstrates normal fibroglandular breast tissue. There is no sonographic abnormal finding. Results are provided to the patient at time of visit by the technologist. MM/MM tomosynthesis diagnostic BI IMPRESSION: Left: Negative. Right: No mammographic or sonographic abnormal finding to account for the patient's areas of right breast pain. Recommend clinical evaluation and follow-up. ASSESSMENT: BI-RADS BI-RADS 1 - Negative RECOMMENDATION: 1 year F/U This patient's information was entered into a reminder system with a target due date for their next mammogram. Electronically signed by: Emi Huddleston DO 03/06/2025 02:36 PM EDT
--- OUTSIDE RECORDS SUMMARY | 2025-03-06 17:24 | XMS_ITS | Patient Health Record ---
Author Organization [facility] Address [address] [place] [phone] Care Team Providers Care Lapeler Name Role Phone JAN SHELTON Primary Care Provider Wm Prince Unavailable [phone] Allergies No Known Allergies Reason For Referral No Information Medications Medication SIG (Take, Route, Frequency, Duration) Notes Start Date End Date Status Butalbital-APAP Acti ve clonazePAM Active Bisacodyl EC 5 MG TAKE 2 TABLETS BY [facility] TWICE A DAY AT 3 PM AND 7 PM for 1 Active Eliquis Active MiraLax (colon prep) 17 [...] W/U Status Risk Notes Problem Rectal bleeding (94177142) Rectal bleeding (K62.5) Active confirmed Problem Change in bowel habit (60903727) Change in bowel habits (R19.4) Active confirmed Vital Signs Blood pressure diastolic 77 mm Hg 11/19/2024 Height 64 in 11/19/2024 Blood pressure systolic 111 mm Hg 11/19/2024 Weight 272 lbs 11/19/2024 BMI 46.68 kg/m2 11/19/2024 Procedures Procedure Date Ordered Date Performed Result Body Sit e COLONOSCOPY 11/19/2024 N/A Encounters Encounter Location Date Provider Diagnosis [facility] [address] [place] [phone] 11/19/2024 Wm Olivas Change in bowel habits R19.4 and Rectal bleeding K62.5 [facility] [address] [place] [phone] 11/19/2024 Wm Olivas [facility] [address] [place] [phone] 01/03/2025 Wm Olivas [facility] [address] [place] [phone] 01/03/2025 Wm Olivas [facility] [address] [place] [phone] 02/24/2025 Wm Olivas [facility] [address] [place] [phone] 02/25/2025 Wm Olivas Assessments Encounter Date Diagnosis (ICD [...] COLONOSCOPY 11/19/2024 Next Appt Details Provider Name:Wm Jorge Olivas , 06/04/2025 08:30:00 AM, [address] [facility] , [place], [place], [phone], Insurance Providers Payer Name Payer Address Payer Phone Subscriber Number Group Number Insured Name Patient Relationship to Insured Coverage Start Date Coverage End Date MEDICARE OF [place] [address] [place] [id number] YANY COLEMAN Self - patient is the insured [address] [facility] [address] [place] [address] [id number] YANY COLEMAN Self - patient is the insured Medical (General) History Medical History History ICD Code Colonoscopies in 2003 and 2008 were nega tive except for hemorrhoids Alcohol abuse---heavier in the past but still drinks occasionally Bipolar Migraines Seizures Denies [place],DM,CVA,Lung disease,renal dise ase Blood clot in left leg in 2021 after kne e surgery Reports Hypoglycemia Surgical History Surgery Date(Month/Year) Right tibia fibula Right femur Right shoulder
== END 2025-03-06 13:28 | disposition home or self-care (01) ==
LOC: HO.MAMMO 13:27
PROVIDERS: PCP Physician Assistant; Visit Provider Physician Assistant
DX: N64.4 Mastodynia (principal)
CPT/HCPCS: 76642; 77062; 77066

== ENCOUNTER → 2025-03-06 13:33 | Outpatient (BNV) | payer MEDICARE, MEDICAID, SELFPAY | PROVIDERS: PCP Physician Assistant; Visit Provider Internal Medicine | DX: N64.4 Mastodynia (principal) | CPT/HCPCS: 76642; 77066; G0279 ==

== ENCOUNTER 2025-03-26 13:26 | Outpatient (AMB) | payer MEDICARE, MEDICAID, SELFPAY ==
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
[2025-03-26 13:41] VITALS: BP 130/90; PULSE 85; TEMP 36.4; O2SAT 95; BMI 47.0
--- OUTSIDE RECORDS SUMMARY | 2025-03-26 14:40 | XMS_ITS | Clinical Summary ---
Author Organization [facility] it Address [address] [place] [address] Care Team Providers Care Architectural Modeler Name Role Phone Unavailable Primary Care Provider [...] 2007 Zoster Vaccines (1 of 2) 2007 Depression Screening 06/26/2024 COVID-19 Vaccine (1 - 2023-2 5 season) 2025 Influenza Vaccine (#1) 2025 RSV Immunization Adult [...]
== END 2025-03-26 14:26 | disposition home or self-care (01) ==
LOC: HO.HMCHD 13:27
PROVIDERS: PCP Physician Assistant; Visit Provider Physician Assistant
DX: G43.909 Migraine, unspecified, not intractable, without status migrainosus (principal); F31.9 Bipolar disorder, unspecified; I82.409 Acute embolism and thrombosis of unspecified deep veins of unspecified lower extremity; F41.1 Generalized anxiety disorder; E78.5 Hyperlipidemia, unspecified; E66.01 Morbid (severe) obesity due to excess calories; G40.909 Epilepsy, unspecified, not intractable, without status epilepticus

== ENCOUNTER → 2025-03-26 13:26 | Outpatient (BNVA) | payer MEDICARE, MEDICAID, SELFPAY | PROVIDERS: PCP Physician Assistant; Visit Provider Physician Assistant | DX: G43.909 Migraine, unspecified, not intractable, without status migrainosus (principal); F31.9 Bipolar disorder, unspecified; I82.401 Acute embolism and thrombosis of unspecified deep veins of right lower extremity; F41.1 Generalized anxiety disorder; E78.5 Hyperlipidemia, unspecified; E66.01 Morbid (severe) obesity due to excess calories; Z68.42 Body mass index [BMI] 45.0-49.9, adult; G40.909 Epilepsy, unspecified, not intractable, without status epilepticus; Z79.01 Long term (current) use of anticoagulants; Z79.899 Other long term (current) drug therapy | CPT/HCPCS: 99212 ==

== ENCOUNTER 2025-04-13 11:46 | Emergency (ER) | payer MEDICARE, MEDICAID, SELFPAY ==
--- OUTSIDE RECORDS SUMMARY | 2025-02-21 03:30 | XMS_ITS ---
Author Organization [facility] Address [address] [place] [address] Care Team Providers Care Rn Complex Care Name Role Phone JAN SHELTON Primary Care Provider Wm Prince Unavailable [phone] REASON FOR VISIT change in bowel habits Encounters Encounter Location Date Provider Diagnosis [facility] [address] [place] [id number] 02/21/2025 Wm Olivas Plan Of Treatment Next Appt Details Provider Name:Wm Patel Deisy , 06/04/2025 08:30:00 AM, [address] [place] [address], [phone], Progress Notes * TRACEY COLEMANEDOB:[birth year] (69 yo F)Acc No.[id number]:02/21/2025 COLON WITH MAC Patient: Jorge YONNY WEBB Provider: Analia Olivas MD :1955 A ge:69 Y S ex:Female Date:02/21/2025 Address:[address], [place] Pcp:JAN SHELTON Subjective: * Chief Complaints: * [...] 02/21/2025 Generated for Edwardo niño/Puneet/Payton on: 1 12:23 PM EDT
--- NOTE | ~2025-04-13 | US_ITS ---
CLINICAL HISTORY: thigh swelling, hx dvt Right lower extremity venous duplex ultrasound Comparison: None available Findings: The visualized deep veins are fully compressible with normal flow. No popliteal cyst. Right groin lymph node of normal morphology measuring 1.6 cm in length. Impression: No deep vein thrombosis. This document has been electronically signed by: Andree Hines MD on 04/13/2025 14:26:41
[2025-04-13 11:49] VITALS: BP 162/96; PULSE 98; O2SAT 94
[2025-04-13 11:55] VITALS: BP 193/83; PULSE 99; RESP 20; TEMP 36.8; O2SAT 96; BMI 49.8
[2025-04-13 12:00] VITALS: BP 193/83; PULSE 99; RESP 20; TEMP 36.8; O2SAT 96
--- NOTE | 2025-04-13 12:02 | PC.NURSE ---
69 F presents to ED with RLE pain, concerns for blood clot, cramping x 3 days. Hx Femur Fracture, blood clot 3 years ago in RLE. A+Ox4, calm, cooperative. Pt sts she just took a mairjuana gummy and it is now kicking in. 8/10 pain. Speaking in full and complete sentences. RR even and unlabored. Pt has difficulty walking, uses a walker. Pt denies CP or SOB.
--- NOTE | 2025-04-13 12:04 | ED.EXTPRO ---
HPI - Extremity Problem General Chief complaint: Extremity Problem Stated complaint: RLE PAIN X3D, NO INJURY PER EMS Source: patient and EMS Mode of arrival: EMS Limitations: no limitations History of Present Illness ED Provider: HPI Narrative: 69-year-old woman reports history of DVTs, had cramp in the right lower extremity calf continues to hurt and feels that her thigh is more swollen than her left thigh, has a history of hardware in the extremity from prior injury. she is a heavy smoker, noted to be hypertensive. States was hypotensive when she was visiting her OB past week, her PCP has retired, smoker Related Data Home Medications ?Medication ?Instructions ?Recorded ?Confirmed hydrocortisone 2.5 % topical topical 12/31/24 12/31/24 ointment Previous Rx's ?Medication ?Instructions ?Recorded apixaban 5 mg tablet (Eliquis) 5 mg PO BID #180 tabs 12/31/24 rosuvastatin 10 mg tablet 10 mg PO DAILY #90 tabs 01/28/25 albuterol sulfate 90 mcg/actuation 2 puff inhalation Q4-6H PRN 03/05/25 aerosol inhaler shortness of breath or wheezing #8.5 grams paroxetine HCl 30 mg tablet 30 mg PO DAILY #90 tabs 03/11/25 xoheoztvbw-vjhdwjignxaip-ouaqdexf 1 tab PO BID PRN headache #30 tabs 03/21/25 50 mg-325 mg-40 mg tablet quetiapine 50 mg tablet 50 mg PO BID #180 tabs 03/21/25 clonazepam 1 mg tablet 1 mg PO Q8H PRN anxiety #30 tabs 04/08/25 quetiapine 200 mg tablet 200 mg PO DAILY #90 tabs 04/11/25 amlodipine 5 mg tablet 5 mg PO DAILY #30 tabs 04/13/25 Allergies Allergy/AdvReac Type Severity Reaction Status Date / Time No Known Allergies Allergy Verified 04/13/25 11:59 Review of Systems Constitutional: Constitutional: Reports as per [facility] Past Medical History Medical History (Updated 04/13/25 @ 13:14 by Sher Waters DO) Alcohol dependence Seizure disorder Morbid obesity HLD (hyperlipidemia) DVT (deep venous thrombosis) Bipolar disorder Migraine Generalized anxiety disorder Surgical History (Updated 02/19/25 @ 14:07 by Shamika Garibay RN) History of colonoscopy (~07/02/08) Family History Family History (Updated 11/04/24 @ 16:00 by Meghna Nolen MA) Mother No problems noted. Father Miller Obrien attack Heart attack Daughter Mental health disorder Social History Social History Housing: House Alcohol intake: current Patient Tobacco Use Status: Current everyday Tobacco user Smoked in Last 30 Days: Yes e-Cigarette/Vaping Use: Currently Using Use of substances other than those prescribed or required for medical reasons: Yes Substance Use Type: Marijuana Advance Directives: No Advance Directives Information Provided: Yes Do you have a plan to hurt others: No Plan service: No Current occupational status: retired Cognitive needs: Yes (cane) Hearing needs: No Vision needs: Yes (rx glasses) Physical Exam Exam: Exam: Alert and oriented x4 Moving upper and lower extremities symmetrically, no cranial nerve deficits Examination of bilateral lower extremities without pitting edema, scar from prior surgery on right lower extremity, calves are not swollen, there maybe more edema of the right thigh, no evidence of erythema, fluctuations Vital Signs: Vital Signs: Last Vital Signs Temp 98.2 F 04/13/25 12:00 Pulse 99 04/13/25 12:00 Resp 20 04/13/25 12:00 BP 193/83 H 04/13/25 12:00 Pulse Ox 96 04/13/25 12:00 O2 Del Method Room Air 04/13/25 12:00 BMI result Body Mass Index 49.8 Medical Decision Making Medical Decision Making MDM Narrative: 12:08 PM 04/13/2025 (Dr. Sher Waters): Patient is concerned that she may have had DVT, it appears that she is already taking apixaban, I have low suspicion that she has a DVT, she is noted to be hypotensive, history of COPD, continues to smoke I will discuss this with her we will obtain ultrasound to make sure that she has not no evidence for DVT Differential Diagnosis Differential Diagnoses: The differential diagnosis associated with the presentation includes (Arterial insufficiency, venous insufficiency, cellulitis, abscess, CHF) Radiology Impression Discussion of test interpretation with radiology: I have reviewed the radiologist's reading. Independent Historian Clinical information obtained from an independent historian. History obtained from or confirmed by: EMS Chronic Conditions Patient?s care impacted by: Hypertension and Other (COPD) Discharge Plan Discharge Clinical Impression: Localized swelling of right lower leg Patient Disposition: Home, Self-Care Additional Instructions: Please make sure to take your blood thinners, your blood pressure has been elevated this will need to have follow up with the primary care provider I know you are worried about your health I recommend you quit smoking Follow up with the PCP, I will start her on a low-dose blood pressure medication you can started if your blood pressure remains elevated I would say is your upper number is over 140 Any other issues concerns come back to the ED Prescriptions: New amlodipine 5 mg tablet 5 mg PO DAILY Qty: 30 0RF No Action rosuvastatin 10 mg tablet 10 mg PO DAILY Qty: 90 1RF albuterol sulfate 90 mcg/actuation HFA aerosol inhaler 2 puff inhalation Q4-6H PRN (Reason: shortness of breath or wheezing) Qty: 8.5 1RF paroxetine HCl 30 mg tablet 30 mg PO DAILY Qty: 90 1RF cojlfpwvig-vdcxqnlbkuljh-uwwm 50-325-40 mg tablet 1 tab PO BID PRN (Reason: headache) Qty: 30 1RF quetiapine 50 mg tablet 50 mg PO BID Qty: 180 3RF clonazepam 1 mg tablet 1 mg PO Q8H PRN (Reason: anxiety) Qty: 30 0RF quetiapine 200 mg tablet 200 mg PO DAILY Qty: 90 3RF hydrocortisone 2.5 % ointment topical Eliquis 5 mg tablet 5 mg PO BID Qty: 180 1RF Print Language: Upper Sorbian
--- OUTSIDE RECORDS SUMMARY | 2025-04-13 12:23 | XMS_ITS | Clinical Summary ---
Author Organization [facility] it Address [address] [place] [address] Care Team Providers Care Mechanical Car Checker Name Role Phone Unavailable Primary Care Provider [...]
--- OUTSIDE RECORDS SUMMARY | 2025-04-13 12:23 | XMS_ITS | Patient Health Record ---
Author Organization [employer] [facility] Address [address] [place] [address] Care Team Providers Care Rough Rib Grader Name Role Phone JAN SHELTON Primary Care Provider Wm Prince Unavailable [phone] Allergies No Known Allergies Reason For Referral No Information Medications Medication SIG (Take, Route, Frequency, Duration) Notes Start Date End Date Status Butalbital-APAP Acti ve clonazePAM Active Bisacodyl EC 5 MG TAKE 2 TABLETS [facility] TWICE A DAY AT 3 PM AND 7 PM; Duration: 1 Active Eliquis Active MiraLax (colon prep) 17 GM/SCOOP 1 238Gm bottle mixed with Gatorade or Crystal Light orally begin at 5:00 p.m. the day before the procedure; Duration: 1 days Active Paxil Active QUEtiapine Fumarate Active MiraLax (colon prep) 17 GM/SCOOP 1 238Gm bottle mixed with Gatorade or Crystal Light orally begin at 5:00 p.m. the day before the procedure; Duration: 1 days 01/03/2025 Active Dulcolax (colon prep) 5 MG take at 3:00 p.m and 7:00p.m. the day before the colonoscopy Orally two tablets twice a day for one day; Duration: 1 days 01/03/2025 Active Social History Tobacco [...] W/U Status Risk Notes Problem Rectal bleeding (56986664) Rectal bleeding (K62.5) Active confirmed Problem Change in bowel habit (14341091) Change in bowel habits (R19.4) Active confirmed Vital Signs Blood pressure diastolic 77 mm Hg 11/19/2024 Height 64 in 11/19/2024 Blood pressure systolic 111 mm Hg 11/19/2024 Weight 272 lbs 11/19/2024 BMI 46.68 kg/m2 11/19/2024 Procedures Procedure Date Ordered Date Performed Result Body Sit e COLONOSCOPY 11/19/2024 N/A Encounters Encounter Location Date Provider Diagnosis [facility] [address] [place] [phone] 11/19/2024 Wm Olivas Change in bowel habits R19.4 and Rectal bleeding K62.5 [facility] [address] [place] [phone] 11/19/2024 Wm Olivas [facility] [address] [place] [phone] 01/03/2025 Wm Olivas [facility] [address] [place] [phone] 01/03/2025 Wm Olivas [facility] [address] [place] [phone] 02/24/2025 Wm Olivas [facility] [address] [place] [phone] 02/25/2025 mW Olivas Assessments Encounter Date Diagnosis (ICD Code) [...] Next Appt Details Provider Name:Wm Olivas , 06/04/2025 08:30:00 AM, [address] [place] [address] , [place], [place], [id number], Insurance Providers Payer Name Payer Address Payer Phone Subscriber Number Group Number Insured Name Patient Relationship to Insured Coverage Start Date Coverage End Date MEDICARE OF [facility] [address] [place] [id number] [id number] YANY COLEMAN Self - patient is the insured 4 MEDICAID OF [facility] [address] [place] [phone] [id number] YANY COLEMAN Self - patient is the insured Medical (General) History Medical History History ICD Code Colonoscopies in 2003 and 2008 were nega tive except for hemorrhoids Alcohol abuse---heavier in the past but still drinks occasionally Bipolar Migraines Seizures Denies DC,DM,CVA,Lung disease,renal dise ase Blood clot in left leg in 2021 after kne e surgery Reports Hypoglycemia Surgical History Surgery Date(Month/Year) Right tibia fibula Right femur Right shoulder
[2025-04-13 13:52] VITALS: BP 193/83; PULSE 99; RESP 20; TEMP 36.8; O2SAT 96
== END 2025-04-13 13:54 | disposition home or self-care (01) ==
PROVIDERS: Emergency Provider Emergency Medicine
DX: M79.89 Other specified soft tissue disorders (principal); M79.661 Pain in right lower leg; Z86.718 Personal history of other venous thrombosis and embolism; I10 Essential (primary) hypertension; F17.210 Nicotine dependence, cigarettes, uncomplicated
CPT/HCPCS: 93971; 99284

== ENCOUNTER → 2025-04-13 12:03 | Outpatient (BNV) | payer MEDICARE, MEDICAID, SELFPAY | PROVIDERS: Emergency Provider Emergency Medicine; Visit Provider Radiology Diagnostic Radiology | DX: R22.31 Localized swelling, mass and lump, right upper limb (principal); Z86.718 Personal history of other venous thrombosis and embolism | CPT/HCPCS: 93971 ==

== ENCOUNTER 2025-04-17 11:19 | Outpatient (AMB) | payer MEDICARE, MEDICAID, SELFPAY ==
--- NOTE | 2025-04-17 11:33 | A.OFFVIS_ITS ---
VS Expanded 04/17/25 11:36 Height 5 ft 4 in Weight 273 lb 13.026 oz BMI 47.0 Intake Visit Reasons: Obesity Allergies No Known Allergies Allergy (Verified 04/13/25 11:59) Nutrition Presentation Details: Pt presents for MNT for obesity Pt reports doing well, reports not interested in dietary recommendations today Admits to consuming high fat foods and unhealthy food choices BS Monitoring Most Recent Diabetes Results: Cholesterol, (<200) 249 mg/dL H 01/15/25 HDL Cholesterol, (>40) 51 mg/dL 01/15/25 Triglycerides, (<150) 144 mg/dL 01/15/25 Creatinine, (0.5-1.4) 0.55 mg/dL 01/15/25 BUN, (9-16) 9 mg/dL 01/15/25 Sodium, (135-145) 142 mmol/L 01/15/25 Potassium, (3.3-5.1) 4.1 mmol/L 01/15/25 Chloride, (96-108) 104 mmol/L 01/15/25 Carbon Dioxide, (22-29) 27 mmol/L 01/15/25 Calcium, (8.4-10.2) 9.1 mg/dL 01/15/25 AST, (5-31) 32 U/L H 01/15/25 ALT, (0-31) 31 U/L 01/15/25 Total Protein, (6.5-8.0) 7.8 g/dL 01/15/25 Albumin, (3.5-5.0) 4.5 g/dL 01/15/25 JHV-Foypiwj-Dz.Jeor Equation Height: 5 ft 4 in Weight: 274 lb Resting Metabolic Rate: 1766.96 Calculated Activity Level: Sedentary Calories Needed to Maintain Weight: 2120.35 Diagnosis Nutrition problem #1: altered nutrition labs As related to (etiology) #1: diagnosis As evidenced by (sign/symptom) #1: abnormal serum lipids [facility] Medical History (Updated 04/14/25 @ 00:00 by Verona Olmstead) Alcohol dependence Seizure disorder Morbid obesity HLD (hyperlipidemia) DVT (deep venous thrombosis) Bipolar disorder Migraine Generalized anxiety disorder Surgical History (Updated 02/19/25 @ 14:07 by Shamika Garibay RN) History of colonoscopy (~07/02/08) Family History (Updated 11/04/24 @ 16:00 by Meghna Nolen MA) Mother No problems noted. Father Angela Obrien attack Heart attack Daughter Mental health disorder Social History Housing: House Alcohol intake: current Patient Tobacco Use Status: Current everyday Tobacco user e-Cigarette/Vaping Use: Currently Using Substance Use Type: Marijuana service: No Current occupational status: retired Cognitive needs: Yes (cane) Hearing needs: No Vision needs: Yes (rx glasses) Assessment & Plan Assessment & Plan (1) Morbid obesity: Code(s): E66.01 - Morbid (severe) obesity due to excess calories Category: Medical Plan: current wt: 124 kg ( 04/19 ) est kcal needs as per MSJ: 2100 est protein needs as per 1 g/kg BW: 120 est fluid needs as per 30 ml/kg BW: 3700 Recommended fiber > 12 g /day and gradually increase up to 25-28 g /day or as tolerated REc sodium intake <2300 Nutrition topics discussed : Reviewed (R), Pt verbalized understanding (V) , not applicable (N/A) R, V, : Healthy Plate Method Concept: R, V, N/A: Carbohydrates: food sources of carbohydrates, relationship of carbohydrates to blood glucose, fatty liver GI health. Recommended total amount of carbohydrates per meals and snack. Differences between simple carbohydrates and complex carbohydrates R, V, N/A: Lean protein foods including vegan , vegetarian sources of protein. Benefits of protein (including but not limited to healing, nutritional value , benefits in weight loss, glucose control R, basic: Fats : Source of fats, benefits of fats. Difference between saturated and unsaturated fats. Saturated fats and its contribution to inflammation R, V, N/A: Fiber: food sources and role of fiber in the diet (including but not limited to its role as a prebiotic, benefits in constipation, role in IBS , role in glucose control and cholesterol level) R, V, N/A: Hydration: role of hydration and prevention of dehydration or over hydration. Foods and water content. R, V, N/A: Vitamins and Minerals in foods and supplements R, V, N/A: Interpreting food labels, including serving size, macronutrients, vitamins, minerals, allergens, ingredient list , % daily value Patient Instructions: Choose fruits in place of pastries - aim at 3 fruits a day Coding Level of Care Code Nutr Indiv Intake (88184) Diagnoses Morbid obesity E66.01 Time Spent (min) 30
[2025-04-17 11:36] VITALS: BMI 47.0
--- OUTSIDE RECORDS SUMMARY | 2025-04-17 14:26 | XMS_ITS | Clinical Summary ---
Author Organization [facility] it Address [address] [place] [address] Care Team Providers Care Electrical Troubleshooter Name Role Phone Unavailable Primary Care Provider [...]
[2025-04-22 22:13] VITALS: BMI 47.0
== END 2025-04-17 12:54 | disposition home or self-care (01) ==
LOC: HO.ENCR 11:20
PROVIDERS: PCP Physician Assistant; Visit Provider Dietitian, Registered
DX: E66.01 Morbid (severe) obesity due to excess calories (principal)

== ENCOUNTER → 2025-04-17 11:19 | Outpatient (BNVA) | payer MEDICARE, MEDICAID, SELFPAY | PROVIDERS: PCP Physician Assistant; Visit Provider Dietitian, Registered | DX: E66.01 Morbid (severe) obesity due to excess calories (principal); Z71.3 Dietary counseling and surveillance | CPT/HCPCS: 97802 ==

== ENCOUNTER 2025-04-28 18:58 | Emergency (ER) | payer MEDICARE, MEDICAID, SELFPAY ==
--- OUTSIDE RECORDS SUMMARY | 2025-02-21 02:30 | XMS_ITS ---
Author Organization [facility] Address [address] [place] [address] Care Team Providers Care Clothes Wringer Name Role Phone JAN SHELTON Primary Care Provider Wm Prince Unavailable [phone] REASON FOR VISIT change in bowel habits Encounters Encounter Location Date Provider Diagnosis [facility] Out[facility] [address] [place] [id number] 02/21/2025 Wm Olivas Plan Of Treatment Next Appt Details Provider Name:Wm Patel Deisy , 06/04/2025 08:30:00 AM, [address] [place] [address], [phone], Progress Notes * TRACEY COLEMANEDOB:[birth year] (69 yo F)Acc No.[id number]:02/21/2025 COLON WITH MAC Patient: Jorge YONNY WEBB Provider: Analia Olivas MD :1955 A ge:69 Y S ex:Female Date:02/21/2025 Address:[address], [place] Pcp:JAN SHELTON Subjective: * Chief Complaints: * [...] 02/21/2025 Generated for Edwardo niño/Puneet/Payton on: 1 06/28/2024 08:52 PM EST
[2025-04-28 19:16] VITALS: BP 117/77; BP 132/70; PULSE 102; PULSE 104; RESP 18; TEMP 36.4; O2SAT 94; O2SAT 95; BMI 45.4
--- NOTE | 2025-04-28 20:15 | MHC.EDTECH ---
pt states she is unsure if she would like to stay thus the delay in EKG
--- NOTE | 2025-04-28 20:47 | PC.NURSE ---
RN made aware patien was at doors to leave ED. provider Fredy MCCALLUM made aware and went to assess patient. patient son is patients ride home. per provider can make the chjoice to leave ED. patient ambulated with steady gait to exit.
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
--- OUTSIDE RECORDS SUMMARY | 2025-04-28 20:52 | XMS_ITS | Patient Health Record ---
Author Organization [facility] Address [address] [place] [address] Care Team Providers Care A/C Technician Name Role Phone JAN SHELTON Primary Care Provider Wm Prince Unavailable [phone] Allergies No Known Allergies Reason For Referral No Information Medications Medication SIG (Take, Route, Frequency, Duration) Notes Start Date End Date Status Butalbital-APAP Acti ve clonazePAM Active Bisacodyl EC 5 MG TAKE 2 TABLETS BY [facility] TWICE A DAY AT 3 PM AND [...] W/U Status Risk Notes Problem Rectal bleeding (85527024) Rectal bleeding (K62.5) Active confirmed Problem Change in bowel habit (81986761) Change in bowel habits (R19.4) Active confirmed Vital Signs Blood pressure diastolic 77 mm Hg 11/19/2024 Height 64 in 11/19/2024 Blood pressure systolic 111 mm Hg 11/19/2024 Weight 272 lbs 11/19/2024 BMI 46.68 kg/m2 11/19/2024 Procedures Procedure Date Ordered Date Performed Result Body Sit e COLONOSCOPY 11/19/2024 N/A Encounters Encounter Location Date Provider Diagnosis [facility] [address] [place] [phone] 11/19/2024 Wm Olivas Change in bowel habits R19.4 and Rectal bleeding K62.5 [facility] [address] [place] [phone] 11/19/2024 Wm Olivas [facility] [address] [place] [phone] 01/03/2025 Wm Olivas [facility] [address] [place] [phone] 01/03/2025 Wm Olivas [facility] [address] [place] [phone] 02/24/2025 Wm Olivas [facility] [address] [place] [phone] 02/25/2025 Wm Olivas Assessments Encounter Date Diagnosis [...] again for allowing me to participate in Ynay's care. I shall continue to keep you [...] Provider Name:Wm Olivas , 06/04/2025 08:30:00 AM, [address] [place] [address] , [place], [place], [id number], Insurance Providers Payer Name Payer Address Payer Phone Subscriber Number Group Number Insured Name Patient Relationship to Insured Coverage Start Date Coverage End Date MEDICARE OF [facility] [address] [place] [id number] YANY COLEMAN Self - patient is the insured 4 MEDICAID OF [facility] [address] [place] [id number] YANY COLEMAN Self - patient is the insured Medical (General) History Medical History History ICD Code Colonoscopies in 2003 and 2008 were nega tive except for hemorrhoids Alcohol abuse---heavier in the past but still drinks occasionally Bipolar Migraines Seizures Denies [place],DM,CVA,Lung disease,renal dise ase Blood clot in left leg in 2021 after kne e surgery Reports Hypoglycemia Surgical History Surgery Date(Month/Year) Right tibia fibula Right femur Right shoulder
--- OUTSIDE RECORDS SUMMARY | 2025-04-28 20:52 | XMS_ITS | Clinical Summary ---
Author Organization [facility] it Address [address] [place] [address] Care Team Providers Care Automatic Seamer Name Role Phone Unavailable Primary Care Provider [...]
== END 2025-04-28 20:50 | disposition left against medical advice (07) ==
PROVIDERS: Emergency Provider Emergency Medicine
DX: R20.2 Paresthesia of skin (principal); Z72.0 Tobacco use; F10.90 Alcohol use, unspecified, uncomplicated; Z79.899 Other long term (current) drug therapy; Z53.21 Procedure and treatment not carried out due to patient leaving prior to being seen by health care provider
CPT/HCPCS: 99282; 99284

== ENCOUNTER 2025-05-07 09:16 | Outpatient (AMB) | payer MEDICARE, MEDICAID, SELFPAY ==
--- OUTSIDE RECORDS SUMMARY | 2025-02-21 02:30 | XMS_ITS ---
Author Organization [facility] Address [address] [place] [address] Care Team Providers Care Horse Doctor Name Role Phone JAN SHELTON Primary Care Provider Wm Prinec Unavailable [phone] REASON FOR VISIT change in bowel habits Encounters Encounter Location Date Provider Diagnosis [facility] [address] [place] [id number] 02/21/2025 Wm Olivas Plan Of Treatment Next Appt Details Provider Name:Wm Patel Olivas , 06/04/2025 08:30:00 AM, [address] [place] [address], [phone], Progress Notes * TRACEY COLEMANEDOB:[birth year] (69 yo F)Acc No.[id number]:02/21/2025 COLON WITH MAC Patient: Jorge YONNY WEBB Provider: Analia Olivas MD :1955 A ge:69 Y S ex:Female Date:02/21/2025 Address:[address], [id number] Pcp:JAN SHELTON Subjective: * Chief Complaints: * 1 . Change in bowel habits. * Medical History: Objective: * Vitals: Assessment: Plan: * Treatment: * * The named appointment provid er may or may not be the originator of this progress note, and it is not deemed complete until electronically signed by the appointment provider. Sign off status: Pending * Provider: Analia Olivas MD Date: 0 02/21/2025 Generated for Edwardo niño/Puneet/Payton on: 1 07/07/2024 10:12 AM EST
[2025-05-07 09:24] VITALS: BP 144/90; PULSE 79; O2SAT 95; BMI 43.9
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
--- OUTSIDE RECORDS SUMMARY | 2025-05-07 10:12 | XMS_ITS | Clinical Summary ---
Author Organization [facility] it Address [address] [place] [address] Care Team Providers Care Toggler Name Role Phone Unavailable Primary Care Provider [...] Depression Screening 06/26/2024 COVID-19 Vaccine (1 - 2024-2 6 season) 2025 Influenza Vaccine (#1) 2025 RSV [...]
--- OUTSIDE RECORDS SUMMARY | 2025-05-07 10:12 | XMS_ITS | Patient Health Record ---
Author Organization [facility] Address [address] [place] [address] Care Team Providers Care Home Supervisor Name Role Phone JAN SHELTON Primary Care Provider Wm Pirnce Unavailable [phone] Allergies No Known Allergies Reason For Referral No Information Medications Medication SIG (Take, Route, Frequency, Duration) Notes Start Date End Date Status Butalbital-APAP Acti ve clonazePAM Active Bisacodyl EC 5 MG TAKE 2 TABLETS BY [facility] TWICE A DAY AT 3 PM [...] W/U Status Risk Notes Problem Rectal bleeding (65236953) Rectal bleeding (K62.5) Active confirmed Problem Change in bowel habit (33242263) Change in bowel habits (R19.4) Active confirmed Vital Signs Blood pressure diastolic 77 mm Hg 11/19/2024 Height 64 in 11/19/2024 Blood pressure systolic 111 mm Hg 11/19/2024 Weight 272 lbs 11/19/2024 BMI 46.68 kg/m2 11/19/2024 Procedures Procedure Date Ordered Date Performed Result Body Sit e COLONOSCOPY 11/19/2024 N/A Encounters Encounter Location Date Provider Diagnosis [facility] [place] [facility] [address] [place] [phone] 11/19/2024 Wm Olivas Change in bowel habits R19.4 and Rectal bleeding K62.5 [facility] [place] [facility] [address] [place] [phone] 11/19/2024 Wm Olivas [facility] [address] [place] [phone] 01/03/2025 Wm Olivas [facility] [address] [place] [phone] 01/03/2025 Wm Olivas [facility] [address] [place] [phone] 02/24/2025 Wm Olivas [facility] [address] [place] [phone] 02/25/2025 Wm Olivas Assessments Encounter Date Diagnosis [...] Provider Name:Wm Olivas , 06/04/2025 08:30:00 AM, [address] [place] [address] , [place], [place], [phone], Insurance Providers Payer Name Payer Address Payer Phone Subscriber Number Group Number Insured Name Patient Relationship to Insured Coverage Start Date Coverage End Date MEDICARE OF [facility] [address] [place] [id number] YANY COLEMAN Self - patient is the insured 4 MEDICAID OF [facility] [address] [place] [id number] YANY COLEMAN Self - patient is the insured Medical (General) History Medical History History ICD Code Colonoscopies in 2003 and 2008 were nega tive except for hemorrhoids Alcohol abuse---heavier in the past but still drinks occasionally Bipolar Migraines Seizures Denies [place],DM,CVA,Lung disease,renal dise ase Blood clot in left leg in 2021 after kne e surgery Reports Hypoglycemia Surgical History Surgery Date(Month/Year) Right tibia fibula Right femur Right shoulder
== END 2025-05-07 10:14 | disposition home or self-care (01) ==
LOC: HO.HSMS 09:17
PROVIDERS: PCP Internal Medicine; Visit Provider Psychiatry & Neurology Neurology
DX: G40.909 Epilepsy, unspecified, not intractable, without status epilepticus (principal); G43.909 Migraine, unspecified, not intractable, without status migrainosus; G47.9 Sleep disorder, unspecified; R06.83 Snoring
CPT/HCPCS: 99204; G2211

== ENCOUNTER → 2025-05-07 09:16 | Outpatient (BNVA) | payer MEDICARE, MEDICAID, SELFPAY | PROVIDERS: PCP Internal Medicine; Visit Provider Psychiatry & Neurology Neurology | DX: G40.909 Epilepsy, unspecified, not intractable, without status epilepticus (principal); G43.909 Migraine, unspecified, not intractable, without status migrainosus; G47.9 Sleep disorder, unspecified; R06.83 Snoring; E66.01 Morbid (severe) obesity due to excess calories; Z68.41 Body mass index [BMI] 40.0-44.9, adult; Z79.01 Long term (current) use of anticoagulants; Z72.0 Tobacco use; F10.10 Alcohol abuse, uncomplicated | CPT/HCPCS: 99202 ==

== ENCOUNTER 2025-05-14 10:34 | Outpatient (REF) | payer MEDICARE, MEDICAID, SELFPAY ==
--- NOTE | ~2025-05-14 | XR_ITS ---
EXAMINATION: XR FEMUR, RIGHT CLINICAL INFORMATION: M79.606 - Pain in leg, unspecified COMPARISON: None available. TECHNIQUE: AP and lateral views of the right femur were obtained. FINDINGS: There is a metallic hardware plate through the lateral aspect of the entire diaphysis from the intertrochanteric region to the distal epiphysis with an old traumatic deformity in the distal diaphysis and metaphysis. No gross loosening. No acute cortical disruption. Osteopenia versus osteoporosis. Periosteal bone reaction in the medial aspect of the distal diaphysis. Joint space narrowing involving medial lateral compartment of the knee. No subcutaneous emphysema. XR/XR femur RT 2V IMPRESSION: No acute fracture or loosening. Status post open reduction internal fixation, right femur. Nonspecific periosteal bone reaction medial aspect distal diaphysis right femur. Consider a dedicated assessment of the right knee x-ray. Electronically signed by: Julio Cesar Irizarry MD 05/14/2025 12:17 PM MAULIK
[2025-05-14 12:26] LABS: Hematocrit 47.2 % (37.0-47.0); Hemoglobin 15.4 g/dl (12.0-16.0); Mean Corpuscular HGB Conc 32.6 g/dl (31.0-35.0); Mean Corpuscular Hemoglobin 31.3 pg (27.0-33.0); Mean Corpuscular Volume 95.9 fL (80.0-98.0); NRBC Abs Auto 0.000 X10*3/uL (0.0-0.012); NRBC Pct Auto 0.0 /100WBC (0.0-0.2); Platelet Count 285 X10*3/uL (160-400); Red Blood Count 4.92 X10*6/uL (4.20-5.50); White Blood Count 8.7 X10*3/uL (4.8-10.8)
[2025-05-14 13:46] LABS: Alanine Aminotransferase 27 U/L (0-31); Albumin Level 4.8 g/dL (3.5-5.0); Alkaline Phosphatase 135 U/L (39-117); Anion Gap 16 (12-20); Aspartate Amino Transferase 24 U/L (5-31); Blood Urea Nitrogen 12 mg/dL (9-16); Calcium 9.5 mg/dL (8.4-10.2); Carbon Dioxide 25 mmol/L (22-29); Chloride 103 mmol/L (96-108); Estimated Glomerular Filt Rate > 60; Potassium 3.9 mmol/L (3.3-5.1); Sodium 140 mmol/L (135-145); Total Protein 8.1 g/dL (6.5-8.0)
== END 2025-05-14 10:35 | disposition home or self-care (01) ==
LOC: HO.XRAY 10:34
PROVIDERS: PCP Physician Assistant Medical; Visit Provider Physician Assistant Medical
DX: F41.1 Generalized anxiety disorder (principal); I10 Essential (primary) hypertension; F31.9 Bipolar disorder, unspecified; E66.01 Morbid (severe) obesity due to excess calories; M79.604 Pain in right leg; G43.909 Migraine, unspecified, not intractable, without status migrainosus; G40.909 Epilepsy, unspecified, not intractable, without status epilepticus; Z87.81 Personal history of (healed) traumatic fracture; Z79.01 Long term (current) use of anticoagulants
CPT/HCPCS: 36415; 73552; 80053; 84443; 85027; 96127

== ENCOUNTER → 2025-05-14 11:48 | Outpatient (BNV) | payer MEDICARE, MEDICAID, SELFPAY | PROVIDERS: PCP Physician Assistant Medical; Visit Provider Radiology Diagnostic Radiology | DX: M79.601 Pain in right arm (principal) | CPT/HCPCS: 73552 ==

== ENCOUNTER 2025-06-04 07:06 | Day surgery (SDC) | payer MEDICARE, MEDICAID, SELFPAY ==
--- OUTSIDE RECORDS SUMMARY | 2025-02-21 02:30 | XMS_ITS ---
Author Organization [facility] Address [address] [place] [address] Care Team Providers Care Belt Operator Name Role Phone JAN SHELTON Primary Care Provider Wm Prince Unavailable [phone] REASON FOR VISIT change in bowel habits Encounters Encounter Location Date Provider Diagnosis [facility] Outpatient [address] [place] [id number] 02/21/2025 Wm Olivas Plan Of Treatment Next Appt Details Provider Name:Wm Jorge Olivas , 06/04/2025 08:30:00 AM, [address] [place] [address], [id number], Progress Notes * TRACEY COLEMANEDOB:[birth year] (69 yo F)Acc No.[id number]:02/21/2025 COLON WITH MAC Patient: Jorge YONNY WEBB Provider: Analia Olivas MD :1955 A ge:69 Y S ex:Female Date:02/21/2025 Address:[address], [place] Pcp:JAN SHELTON Subjective: * Chief Complaints: * C hange in bowel habits Billing Information: * Procedure Codes: * The named appointment provid er may or may not be the originator of this progress note, and it is not deemed complete until electronically signed by the appointment provider. Sign off status: Pending * Provider: Analia Olivas MD Date: 0 02/21/2025 Generated for Edwardo niño/Puneet/Payton on: 1 07/14/2024 04:46 AM EST
--- OUTSIDE RECORDS SUMMARY | 2025-05-14 04:46 | XMS_ITS | Clinical Summary ---
Author Organization [facility] it Address [address] [place] [address] Care Team Providers Care Ball Points Inspector Name Role Phone Unavailable Primary Care Provider [...]
--- OUTSIDE RECORDS SUMMARY | 2025-05-14 04:46 | XMS_ITS | Patient Health Record ---
Author Organization [facility] Address [address] [place] [id number] Care Team Providers Care Actuarial Technician Name Role Phone NIKITAWARDJAN Primary Care Provider Wm Prince Unavailable [phone] Allergies No Known Allergies Reason For Referral No Information Medications Medication SIG (Take, Route, Frequency, Duration) Notes Start Date End Date Status Butalbital-APAP Acti ve clonazePAM Active Bisacodyl EC 5 MG Tablet Delayed Release TAKE 2 TABLETS BY MOUTH TWICE A DAY AT 3 PM AND 7 PM; Duration: 1 Active Eliquis Active MiraLax (colon prep) 17 GM/SCOOP Powder 1 238Gm bottle mixed with Gatorade or Crystal Light orally begin at 5:00 p.m. the day before the procedure; Duration: 1 days Active Paxil Active QUEtiapine Fumarate Active MiraLax (colon prep) 17 GM/SCOOP Powder 1 238Gm bottle mixed with Gatorade or Crystal Light orally begin at 5:00 p.m. the day before the procedure; Duration: 1 days 01/03/2025 Active Dulcolax (colon prep) 5 MG Tablet Delayed Release take at 3:00 p.m and 7:00p.m. the day before the colonoscopy Orally two tablets twice a day for one day; Duration: 1 days 01/03/2025 Active Social History Tobacco Use: Social History Observation Description Date Details (start date - stop date) Current Smoker NA - NA Social History Drug/Alcohol: Social Info Question Answer Notes AUDIT-C (Standard) Did you have a drink containing alcohol in the past year? No Points 0 Interpretation Negative Tobacco Use: Social Info Question Answer Notes Tobacco Control (Standard) Tobacco use: Current smoker How often do you smoke cigarettes? Every day How many cigarettes a day do you smoke? 21-30 How soon after you wake up do you smoke your first cigarette? 6-30 minutes Additional Details Category Social Info Options Details Miscellaneous: Marital status: Occupation: unemployed Section Notes: Smokes 1 PPD, Alcohol abuse but not daily anymore Problems Problem Type SNOMED Code ICD Code Onset Dates Problem Status W/U Status Risk Notes Problem Rectal bleeding (06415633) Rectal bleeding (K62.5) Active confirmed Problem Change in bowel habit (75227472) Change in bowel habits (R19.4) Active confirmed Vital Signs Blood pressure diastolic 77 mm Hg 11/19/2024 Height 64 in 11/19/2024 Blood pressure systolic 111 mm Hg 11/19/2024 Weight 272 lbs 11/19/2024 BMI 46.68 kg/m2 11/19/2024 Procedures Procedure Date Ordered Date Performed Result Body Sit e COLONOSCOPY 11/19/2024 N/A Encounters Encounter Location Date Provider Diagnosis [facility] [address] [place] [phone] 11/19/2024 Wm Olivas Change in bowel habits R19.4 and Rectal bleeding K62.5 [facility] [address] [place] [phone] 11/19/2024 Wm Olivas [facility] [address] [place] [phone] 01/03/2025 Wm Olivas [facility] [address] [place] [phone] 01/03/2025 Wm Olivas [facility] [address] [place] [phone] 02/24/2025 Wm Olivas [facility] [address] [place] [phone] 02/25/2025 Wm Olivas Assessments Encounter Date Diagnosis [...] Provider Name:Wm Olivas , 06/04/2025 08:30:00 AM, [address] [facility] , [place], [place], [id number], Insurance Providers Payer Name Payer Address Payer Phone Subscriber Number Group Number Insured Name Patient Relationship to Insured Coverage Start Date Coverage End Date MEDICARE OF [place] [address] [place] [address] [id number] YANY COLEMAN Self - patient is the insured 4 MEDICAID OF [place] [address] [place] [phone] [id number] YANY COLEMAN Self - patient is the insured Medical (General) History Medical History History ICD Code Colonoscopies in 2003 and 2008 were nega tive except for hemorrhoids Alcohol abuse---heavier in the past but still drinks occasionally Bipolar Migraines Seizures Denies CO,DM,CVA,Lung disease,renal dise ase Blood clot in left leg in 2021 after kne e surgery Reports Hypoglycemia Surgical History Surgery Date(Month/Year) Right shoulder Right femur Right tibia fibula
--- NOTE | 2025-06-02 10:28 | HO.ANESPROP2 ---
Documented by User: Beth Chung NP 06/03/25 08:29 HPI - Anesthesia Eval Consult details Narrative: 69yo F for Colonoscopy BMI 47 Eliquis for DVT post knee surgery Hx ETOH abuse Seizure ds since childhood - controlled on clonazepam - no current Neurology but stable per 12/2024 PCP note and referred to Neuro [facility] Active Problems Active Problems: All Active Problems Hypertension (Acute) History of fracture (Acute) Leg pain (Acute) Snoring (Acute) Sleep disorder (Acute) Breast pain, right (Acute) Chronic pain of right lower extremity (Acute) Chronic right hip pain (Acute) Seizure disorder (Acute) Morbid obesity (Acute) HLD (hyperlipidemia) (Acute) DVT (deep venous thrombosis) (Acute) Bipolar disorder (Acute) Migraine (Acute) Generalized anxiety disorder (Acute) Past Medical History Medical History History of femur fracture (~2020) Hypertension History of fracture Leg pain Snoring Sleep disorder Alcohol dependence Seizure disorder Morbid obesity HLD (hyperlipidemia) DVT (deep venous thrombosis) Bipolar disorder Migraine Generalized anxiety disorder Family History Family History Mother No problems noted. Father Miller Obrien attack Heart attack Daughter Mental health disorder Surgical History Surgical History Hx of tonsillectomy History of surgery History of right shoulder surgery History of colonoscopy (~07/02/08) Social History Social History Household Members: Significant Other Housing: House Are you a primary healthcare business analyst to a significant other at home: No Do you presently have visiting nurse or other home services: No Alcohol intake: current Alcohol type: hard liquor Patient Tobacco Use Status: Current everyday Tobacco user Tobacco use type: Cigarette Cigarette Packs Per Day: 0.5 Cigarettes Per Day: 10.0 Smoked in Last 30 Days: Yes e-Cigarette/Vaping Use: Currently Using Use of substances other than those prescribed or required for medical reasons: Yes Substance Use Type: Marijuana Substance Use Type Other:: gummies Have you been hit, kicked, punched, or otherwise hurt by someone within the past year? If so, by whom?: No Are you DNR?: No Advance Directives: No Advance Directives Information Provided: Yes (declined) Advance Directives on File: No Patient : No : No service: No Current occupational status: retired Cognitive needs: Yes (cane) Hearing needs: No Vision needs: Yes (rx glasses) Meds Allergies Allergy/AdvReac Type Severity Reaction Status Date / Time No Known Allergies Allergy Verified 06/02/25 10:36 Home Medications ?Medication ?Instructions ?Recorded ?Confirmed ?Last Taken ?Type clonazepam 1 mg tablet 1 mg PO TID seizure activity 06/02/25 06/02/25 Unknown History quetiapine 200 mg tablet 200 mg PO BEDTIME 06/02/25 06/02/25 Unknown History quetiapine 50 mg tablet 50 mg PO BID PRN Anxiety 06/02/25 06/02/25 Unknown History amlodipine 5 mg tablet 5 mg PO DAILY 06/04/25 06/04/25 06/04/25 History Exam Height,Weight and Vital Signs: Height 5 ft 4 in Weight 123.377 kg Pertinent Lab Results Pertinent Lab Results: Laboratory Tests 01/15/25 09:00 WBC 6.2 Hgb 14.4 Hct 43.3 Plt Count 283 Sodium 142 Potassium 4.1 Chloride 104 Carbon Dioxide 27 BUN 9 Creatinine 0.55 Assessment and Plan Assessment Anesthesia Assessment: Chart Reviewed Documented by User: Jeffrey Haywood MD 06/04/25 09:21 [facility] Past Medical History Medical History History of femur fracture (~2020) Hypertension History of fracture Leg pain Snoring Sleep disorder Alcohol dependence Seizure disorder Morbid obesity HLD (hyperlipidemia) DVT (deep venous thrombosis) Bipolar disorder Migraine Generalized anxiety disorder Functional capacity: independent ambulation Family History Family History Mother No problems noted. Father Miller Obrien attack Heart attack Daughter Mental health disorder Surgical History Surgical History Hx of tonsillectomy History of surgery History of right shoulder surgery History of colonoscopy (~07/02/08) History of Problems with Anesthesia: No Social History Social History Household Members: Significant Other Housing: House Are you a primary healthcare business analyst to a significant other at home: No Do you presently have visiting nurse or other home services: No Alcohol intake: current Alcohol type: hard liquor Patient Tobacco Use Status: Current everyday Tobacco user Tobacco use type: Cigarette Cigarette Packs Per Day: 0.5 Cigarettes Per Day: 10.0 Smoked in Last 30 Days: Yes e-Cigarette/Vaping Use: Currently Using Use of substances other than those prescribed or required for medical reasons: Yes Substance Use Type: Marijuana Substance Use Type Other:: gummies Have you been hit, kicked, punched, or otherwise hurt by someone within the past year? If so, by whom?: No Are you DNR?: No Advance Directives: No Advance Directives Information Provided: Yes (declined) Advance Directives on File: No Patient : No : No service: No Current occupational status: retired Cognitive needs: Yes (cane) Hearing needs: No Vision needs: Yes (rx glasses) Meds Allergies Allergy/AdvReac Type Severity Reaction Status Date / Time No Known Allergies Allergy Verified 06/02/25 10:36 Home Medications ?Medication ?Instructions ?Recorded ?Confirmed ?Last Taken ?Type clonazepam 1 mg tablet 1 mg PO TID seizure activity 06/02/25 06/02/25 Unknown History quetiapine 200 mg tablet 200 mg PO BEDTIME 06/02/25 06/02/25 Unknown History quetiapine 50 mg tablet 50 mg PO BID PRN Anxiety 06/02/25 06/02/25 Unknown History amlodipine 5 mg tablet 5 mg PO DAILY 06/04/25 06/04/25 06/04/25 History Exam Exam Date and Time: 06/04/25 Airway TM Dist: >3cm Neck ROM: Full Heart: normal Lungs: normal Other: normal Assessment and Plan Assessment Anesthesia Assessment: Anesthesia Plan Discussed Final Anesthetic Review History of Problems with Anesthesia: No NPO: Yes ASA Class: III Final Preanesthetic Review: No Changes in Pt Med Stat, Meds/Allgs Chart Reviewed, Consent Obtained/Reviewed and Anes Risks/Benef Reviewed Patient Risk: Low Procedure Risk: Low Anesthetic Plan Anesthetic Plan: GA and MAC: Disposition: Standard PACU
[2025-06-02 10:33] VITALS: BMI 47.2
[2025-06-04 07:27] VITALS: BMI 46.0
[2025-06-04 07:36] VITALS: BMI 46.0
[2025-06-04 07:51] VITALS: BP 140/94; PULSE 91; RESP 16; TEMP 36.1; O2SAT 96
[2025-06-04] MEDS: Lactated Ringers 1,000 ML 100 ML IVCONT (08:02)
[2025-06-04 09:55] VITALS: BP 149/87; PULSE 88; RESP 20; TEMP 36.6; O2SAT 99
--- NOTE | 2025-06-04 09:59 | P.BOP_ITS ---
Brief Operative Note Date of Service: 06/04/25 Pre-op diagnosis: Rectal bleeding Post-op diagnosis: other (Internal hemorrhoids) Procedure: Colonoscopy to the cecum Surgeon: Wm Olivas MD Anesthesia: MAC Was an Rubber Tubing Splicer used for this Procedure?: No Estimated blood loss (mL): 0 Pathology: none sent Condition: stable Disposition: PACU
[2025-06-04 10:10] VITALS: BP 120/85; PULSE 91; RESP 20; O2SAT 95
--- NOTE | 2025-06-04 10:23 | OP_ITS ---
DATE OF SERVICE: 06/04/2025 SURGEON: Wm Olivas MD INDICATIONS: The patient presents for evaluation of intermittent hematochezia. Full consent obtained from her for this, including risks of bleeding and perforation. PREOPERATIVE DIAGNOSIS: Hematochezia. POSTOPERATIVE DIAGNOSIS: PROCEDURE PERFORMED: Colonoscopy to the cecum. ESTIMATED BLOOD LOSS: COMPLICATIONS: ANESTHESIA: Medication used, monitored anesthesia care. ASSISTANTS: SPECIMENS: POSTOPERATIVE DIAGNOSES: Hematochezia, diverticulosis, and internal hemorrhoids. DESCRIPTION OF PROCEDURE: The patient was placed in left lateral decubitus position. The digital rectal exam revealed no abnormalities. The Olympus video pediatric colonoscope was entered into the rectum and advanced to the cecum with the assistance of abdominal wall pressure. Once in the cecum, I did identify normal-appearing cecal pouch with appendiceal orifice and a normal-appearing ileocecal valve. The entire cecum and ileocecal valve were well visualized and appeared normal. The scope was slowly withdrawn assessing all mucosal surfaces carefully. Preparation was excellent. I did not visualize any sign of polyps, colitis, nor angiodysplasia. There was a mild amount of sigmoid diverticulosis. In the rectum, scope was retroflexed visualizing internal hemorrhoids, but no other pathology. The rectal mucosa appeared normal. Scope was straightened and withdrawn from the patient. She tolerated the procedure well and she was returned to recovery area in stable condition. IMPRESSION: 1. Diverticulosis. 2. Internal hemorrhoids. PLAN: Given the negative exam, I would recommend a repeat colonoscopy in 10 years for further screening. She will otherwise see me as needed. She was advised to resume her Eliquis today. MD KIYA Nguyen/JOSE / [phone]
== END 2025-06-04 10:36 | disposition home or self-care (01) ==
PROVIDERS: Visit Provider Internal Medicine
PROC: 0DJD8ZZ Inspection of Lower Intestinal Tract, Via Natural or Artificial Opening Endoscopic (ICD-10-PCS; CPT 45378; principal; 2025-06-04 08:30)
DX: Z12.11 Encounter for screening for malignant neoplasm of colon (principal); R19.4 Change in bowel habit; K57.30 Diverticulosis of large intestine without perforation or abscess without bleeding; K64.8 Other hemorrhoids; R19.5 Other fecal abnormalities
CPT/HCPCS: G0121; J2003; J2704